=== PATIENT | female | born 1945 | race Caucasian/White ===

== ENCOUNTER 2016-11-06 13:39 | Inpatient (IN) ==
--- NOTE | 2016-11-06 15:13 | EKG Report ---
Test Performed on : 11/06/2016 2:54:25 PM Test Reason : fatigue Blood Pressure : / mmHG Vent. Rate : 064 BPM Atrial Rate : 064 BPM P-R Int : 194 ms QRS Dur : 066 ms QT Int : 412 ms P-R-T Axes : 075 015 059 degrees QTc Int : 425 ms Normal sinus rhythm. Nonspecific T wave abnormality Abnormal ECG When compared with ECG of 22-JUL-2016 10:46, No significant change was found Confirmed by Dominic Fontana MD ([id number]) on 11/26/2016 10:32:45 PM
[2016-11-06 15:49] LABS: AGAP 9; ALBUMIN 3.4 g/dL (3.5-5.0); ALKALINE PHOSPHATASE 81 U/L (32-104); BUN 16 mg/dL (8-22); CALCIUM 8.6 mg/dL (8.8-10.2); CHLORIDE 102 mmol/L (98-107); COSMO 281; GOT 42 U/L (10-30); GPT 10 U/L (10-36); POTASSIUM 3.5 mmol/L (3.5-5.1); SODIUM 140 mmol/L (136-145); TCO2 29 mmol/L (25-35); TOTAL PROTEIN 5.7 g/dL (6.3-8.3)
[2016-11-06] MEDS: DUONEB (A & A) INH SCH ×2 (15:50→22:04)
--- NOTE | 2016-11-06 15:56 | Diag Imaging Result Document ---
PROCEDURE NAME: CHEST-PORTABLE - 11/06/2016 PORTABLE CHEST AT 1503 HOURS: FINDINGS: The inspiration is better than on the previous study of 07/22/2016. There is no evidence of acute cardiac or pulmonary disease. IMPRESSION: No acute disease.
[2016-11-06] MEDS: XANAX PO SCH ×2 (17:53→21:26)
[2016-11-06] MEDS: PERCOCET-10 PO SCH ×2 (17:53→21:25)
[2016-11-06] MEDS: LOVENOX SUBQ SCH (17:53)
[2016-11-06] MEDS: D5 1/2 NS 1,000 ML IV SCH (17:53)
--- NOTE | 2016-11-06 17:57 | HISTORY AND PHYSICAL ---
CHIEF COMPLAINT: Extreme weakness, several falls over the past few days, anorexia, and lethargy. HISTORY: This is one of several [facility] admissions for this 71-year-old, white female with chronic headache, anxiety, insomnia, depression who is a resident of [facility]. According to family and friends, she has fallen several times the last few days and is more confused and more lethargic, eating very little. She was seen in the office this afternoon and found to have low blood pressure of 80/50. She has myalgias and arthralgias due to recent falls. There are a few contusions on both hips. Mucous membranes are slightly pale. She is admitted for further evaluation and treatment and probable referral to rehab at discharge. PAST MEDICAL HISTORY: Significant for left hip fracture in 2015 due to a fall. Attempts were made to ascertain whether she was taking too much of her controlled substances. It did not seem that she was according to counts in bottles. PRESENT MEDICATIONS: Albuterol 2.5 mg, atropine q.i.d., Xanax 1 mg q.i.d., Lexapro 20 mg once daily, Zyprexa 5 mg daily, oxycodone 10 mg/325, 1 q.i.d., Requip 2 mg at bedtime, and trazodone 150 mg at bedtime. ALLERGIES: None known. REVIEW OF SYSTEMS: Significant for generalized weakness. She has chronic headaches and anxiety. She takes heavy doses of Xanax and oxycodone. She has had no recent vomiting or diarrhea. FAMILY HISTORY: Unremarkable. SOCIAL HISTORY: She lives alone and is a . She has been a moderate cigarette smoker in the past. She denies recent alcohol usage. PHYSICAL EXAMINATION: VITAL SIGNS: Temperature 98.2 degrees, heart rate 84, respirations 18, blood pressure 80/50. O2 sat on room air 88%. HEENT: Pupils equal, round, and reactive to light. Tympanic membranes without inflammation. Pharynx benign with no erythema or exudate. She has decrease in pigmentation of the skin, genetic origin. There are a few contusions over the hips secondary to falls. NECK: Supple with no mass or lymphadenopathy. HEART: Regular in rate and rhythm with no murmur, rub or gallop. LUNGS: Clear with no rales or rhonchi. ABDOMEN: Soft with no mass, tenderness, or organomegaly. EXTREMITIES: No cyanosis, clubbing, or edema. NEUROLOGIC: She was very weak in the office requiring a wheelchair to come into the office and go back to her vehicle. She was brought in by a relative. IMPRESSION: Anorexia, volume depletion, hypotension, and multiple recent falls. PLAN: Admit for further evaluation and probable rehab placement. cc: Mart Pretty MD
[2016-11-06 18:29] LABS: UR AMPHETAMINES QUAL NONE DETECTED (NONE DETECT); UR BARBITUATES QUAL NONE DETECTED (NONE DETECT); UR BENZODIAZEPIN QUAL PRESUMPTIVE POSITIVE (NONE DETECT); UR CANNABINOIDS QUAL NONE DETECTED (NONE DETECT); UR COCAINE QUAL NONE DETECTED (NONE DETECT); UR MDMA QUAL NONE DETECTED (NONE DETECT); UR METHADONE QUAL NONE DETECTED (NONE DETECT); UR METHAMPHETAMINE QUAL NONE DETECTED (NONE DETECT); UR OPIATES QUAL PRESUMPTIVE POSITIVE (NONE DETECT); UR OXYCODONE QUAL PRESUMPTIVE POSITIVE (NONE DETECT); UR PCP QUAL NONE DETECTED (NONE DETECT); UR TCA QUAL PRESUMPTIVE POSITIVE (NONE DETECT)
[2016-11-06 18:49] LABS: URINE SOURCE VOIDED
[2016-11-06 18:54] LABS: BILIRUBIN URINE NEGATIVE (NEGATIVE); BLOOD URINE 1+ (NEGATIVE); CLARITY CLEAR (CLEAR); COLOR YELLOW; GLUCOSE URINE NEGATIVE (NEGATIVE); LEUKOCYTES URINE TRACE (NEGATIVE); NITRITE URINE NEGATIVE (NEGATIVE); PROTEIN URINE TRACE mg/dL (NEGATIVE); URINE MICROSCOPIC NEEDED? YES; UROBILINOGEN URINE NORMAL
[2016-11-06 18:55] LABS: URINE EPITHELIAL CELLS <10 /HPF (<10); URINE RBC <10 /HPF (<10); URINE WBC <10 /HPF (<10)
[2016-11-06] MEDS: REQUIP PO SCH (21:26)
[2016-11-07] MEDS: D5 1/2 NS 1,000 ML IV SCH ×3 (02:07→18:44)
[2016-11-07] MEDS: DUONEB (A & A) INH SCH ×2 (03:47→09:00)
[2016-11-07 06:26] LABS: MANUAL DIFF NEEDED? NO
[2016-11-07 06:36] LABS: BASO% 0.3 % (0.0-0.8); EOS# 0.15 X1000 (0.0-0.7); EOS% 2.3 % (0.0-10.0); HEMATOCRIT 43.1 % (37.0-47.0); HEMOGLOBIN 13.9 g/dL (12.0-16.0); IMM GRAN# 0.02 X1000 (0.0-0.04); IMM GRAN% 0.3 % (0.0-0.5); LYMPH% 39.1 % (20.5-51.1); MCH 31.7 PG (27-31); MCHC 32.3 g/dL (33-37); MCV 98.4 FL (81-99); MONO# 0.74 X1000 (0.11-0.59); MONO% 11.1 % (1.7-9.3); MPV 11.5 FL (7.4-10.4); NEUT% 46.9 % (42.2-75.2); PLT 111 X1000 (130-400); RBC 4.38 XMIL (4.2-5.4)
--- NOTE | 2016-11-07 07:50 | Diag Imaging Result Document ---
PROCEDURE NAME: XRAY HIP W/PELVIS BILAT 3-4VWS - 11/07/2016 X-RAY PELVIS, 2 VIEWS OF THE RIGHT HIP, 2 VIEWS OF THE LEFT HIP: COMPARISON: 03/20/2015. FINDINGS: There has been placement of a left femoral head prosthesis. No evidence of hardware fracture or loosening. Alignment is anatomic. The right hip joint space is preserved. Stable injection granulomas in the flanks bilaterally. There is increasing sclerosis of the right sacral wing close to the sacroiliac joint. The left side may also be affected. IMPRESSION: Abnormal sclerosis of the right sacral wing. The appearance is most suggestive of chronic insufficiency fractures. Consider further evaluation with a bone scan or CT of the pelvis.
--- NOTE | 2016-11-07 08:36 | PROGRESS NOTE ---
DATE: 11/07/2016 VITAL SIGNS: Stable with temperature 98.1 degrees, heart rate 64, respirations 18, blood pressure 112/47, and O2 saturation on room air 92%. LABORATORY DATA: Urinalysis normal except for trace protein and trace blood. Hemoglobin 13.9. Hematocrit 43.1. White blood count 6,600. OBJECTIVE: She feels a little better this morning and does not complain of dizziness. Chest is clear. Abdomen is soft. Appetite is fair. PLAN: Ambulate with physical therapy. cc: Mart Pretty MD
--- NOTE | 2016-11-07 08:46 | Diag Imaging Result Document ---
PROCEDURE NAME: LUMBAR SPINE 2-VIEWS - 11/07/2016 LUMBAR SPINE, 3 VIEWS: COMPARISON: 01/01/2013. FINDINGS: Alignment is anatomic. There is moderately advanced multilevel degenerative disk disease with some narrowing and osteophyte formation. No fracture or subluxation. Stable calcifications of the aorta and retroperitoneum. IMPRESSION: Degenerative disk disease. No acute disease.
[2016-11-07] MEDS ORDERED: LEXAPRO PO SCH (09:00)
[2016-11-07] MEDS: LEXAPRO PO SCH (10:15)
[2016-11-07] MEDS: ZYPREXA PO SCH (10:15)
[2016-11-07] MEDS: XANAX PO SCH ×4 (10:16→20:11)
[2016-11-07] MEDS: PERCOCET-10 PO SCH ×4 (10:16→20:11)
[2016-11-07] MEDS ORDERED: DUONEB (A & A) INH PRN (15:30)
[2016-11-07] MEDS: LOVENOX SUBQ SCH (17:52)
[2016-11-07] MEDS: REQUIP PO SCH (20:11)
[2016-11-08] MEDS: D5 1/2 NS 1,000 ML IV SCH ×4 (02:31→21:23)
[2016-11-08] MEDS: PERCOCET-10 PO SCH ×4 (10:15→21:23)
[2016-11-08] MEDS: LEXAPRO PO SCH (10:16)
[2016-11-08] MEDS: XANAX PO SCH ×4 (10:17→21:23)
[2016-11-08] MEDS: ZYPREXA PO SCH (10:17)
--- NOTE | 2016-11-08 11:13 | PROGRESS NOTE ---
DATE: 11/08/2016 PRIMARY CARE PHYSICIAN: Dr. Pretty SUBJECTIVE: Overnight, no issues or complaints. The patient is lying in bed with minimal needs. The patient has some overt memory deficits and does not remember the reason for admission aside from becoming dehydrated. OBJECTIVE: Vital signs: Temperature is stable, O2 saturation is approximately 92%, blood pressure within normal limits, respirations approximately 19 breaths per minute. General: A severely debilitated elderly female in no overt distress. HEENT: Left-sided nystagmus that is rotational, multiple beat and highly reproducible when the patient has a rightward gaze. Oropharynx shows dry mucous membranes. Pupils are round and reactive to light. Dentition is noted as poor. Neck: No JVD noted. Supple. No thyromegaly. Chest: Diffuse breath sounds at the bilateral bases with some rhonchi noted. Abdomen: No tenderness, no guarding, no rebound. Cardiovascular: Regular rate with multiple PVCs. No overt murmurs auscultated. Lower extremities: Noted muscular atrophy. Trace lower extremity edema. Neurologic: Cranial nerves II through XII are intact. The patient has incredibly poor eyesight. Denies any vertigo associated with tracking and noted alert to self only with waxing and waning mentation. DIAGNOSTIC DATA: The patient's labs showed hyponatremia and hypokalemia consistent with volume depletion, otherwise within normal limits. Some remainder of labs are pending at this a.m., and we will follow that course. IMPRESSION AND PLAN: Ms. Nuno is a 71-year-old female with: 1. Dehydration. 2. Acute on chronic fall. 3. Hypotension. 4. Legal blindness. 5. Metabolic encephalopathy, acute on chronic, with poor p.o. intake. The patient will be continued on high volume fluid resuscitation including dextrose due to the patient's poor p.o. status, will be advised to increase the intake of appropriate foods and physical therapy to both evaluate and increase her ability to maintain appropriate strength. Plans have been made via Social Work to allow for the patient to find placement approximately Thursday. We will follow until that time. cc: MD Mart Roberson MD
[2016-11-08] MEDS: LOVENOX SUBQ SCH (18:06)
[2016-11-08] MEDS: REQUIP PO SCH (21:22)
[2016-11-09] MEDS: D5 1/2 NS 1,000 ML IV SCH ×3 (03:28→14:32)
[2016-11-09 06:11] LABS: MANUAL DIFF NEEDED? NO
[2016-11-09 06:19] LABS: BASO% 0.2 % (0.0-0.8); EOS# 0.19 X1000 (0.0-0.7); EOS% 3.3 % (0.0-10.0); HEMATOCRIT 37.4 % (37.0-47.0); HEMOGLOBIN 11.9 g/dL (12.0-16.0); IMM GRAN# 0.02 X1000 (0.0-0.04); IMM GRAN% 0.4 % (0.0-0.5); LYMPH# 2.14 X1000 (1.2-3.4); LYMPH% 37.6 % (20.5-51.1); MCH 30.9 PG (27-31); MCHC 31.8 g/dL (33-37); MCV 97.1 FL (81-99); MONO# 0.56 X1000 (0.11-0.59); MONO% 9.8 % (1.7-9.3); MPV 11.5 FL (7.4-10.4); NEUT% 48.7 % (42.2-75.2); PLT 110 X1000 (130-400); RBC 3.85 XMIL (4.2-5.4)
[2016-11-09 06:48] LABS: AGAP 9; ALKALINE PHOSPHATASE 68 U/L (32-104); BUN 5 mg/dL (8-22); CALCIUM 8.2 mg/dL (8.8-10.2); CHLORIDE 107 mmol/L (98-107); COSMO 282; GOT 25 U/L (10-30); GPT 9 U/L (10-36); MAGNESIUM 1.7 mg/dL (1.5-2.7); SODIUM 143 mmol/L (136-145); TCO2 27 mmol/L (25-35); TOTAL PROTEIN 5.2 g/dL (6.3-8.3)
[2016-11-09] MEDS: ZYPREXA PO SCH (09:28)
[2016-11-09] MEDS: XANAX PO SCH ×3 (09:28→18:31)
[2016-11-09] MEDS: LEXAPRO PO SCH (09:29)
--- NOTE | 2016-11-09 11:31 | PROGRESS NOTE ---
DATE: 11/09/2016 PRIMARY CARE PHYSICIAN: Dr. Mart Pretty. SUBJECTIVE: Overnight, the patient had minimal changes. Did have some issues regarding blood pressure, dropped to 99/52. Appears to respond as expected. The patient still is at a low functioning status with some memory deficits that will need to have long-term management status post. OBJECTIVE: Vital Signs: Temperature 98.4 degrees, pulse 70, respirations 16, blood pressure 133/79, O2 saturation 98% on room air. Physical Examination: General: Shows a bedbound, elderly female in mild to moderate distress with bilateral left gaze nystagmus, rotational and multiple beats, reproducible with rightward gaze. HEENT: OP is dry. Pupils equal, round, reactive to light. Dentition is poor. Neck: No JVD noted. No thyromegaly. Respiratory: Breath sounds are decreased at the bilateral bases. Occasional rhonchi that clears with cough. Cardiovascular: Regular rate with multiple PVCs. No murmurs noted. Extremities: Lower extremities show muscle atrophy with trace lower extremity edema. Neurological: Cranial nerves 2-12 are grossly intact. Reflexes are within normal limits. Psychiatric: From a psychiatric point of view, the patient has some overt memory deficits. Laboratory Data: Labs how hemoglobin and hematocrit of 11 and 37.4 respectively, MCV improved to 30, WBC still within normal limits. Potassium low at 3, with a BUN of 5, creatinine 0.6, glucose 98-105, calcium still low at 8.2. ALT and AST returned to normal limits. Total protein 5.2, albumin 3. Normal TSH. Microbiology with no specimen showing anything acutely. ASSESSMENT: This is a 71-year-old, unfortunate female with: 1. Dehydration, improving. 2. Acute fall on chronic fall risk with multiple fall history and recurrent admission. 3. Hypertension. 4. Legal blindness. 5. Metabolic encephalopathy, acute on chronic with history of moderate to severe dementia. PLAN: We will decrease the fluid resuscitation. Replete the potassium as noted. Continue with the workup via social work to find a placement appropriately. We will continue symptomatic care for her current issues and follow with some daily labs to ensure the electrolytes stay within balance. We will repeat a urinalysis with urine culture to evaluate in case there are antibiotics that are needed prior to discharge. cc: MD Mart Roberson MD
[2016-11-09] MEDS: PERCOCET-10 PO SCH ×2 (14:30→18:31)
[2016-11-09] MEDS: KLOR-CON PO SCH ×2 (14:30→22:05)
[2016-11-09] MEDS: LOVENOX SUBQ SCH (18:30)
[2016-11-09] MEDS ORDERED: DEPAKOTE SPRINKLE PO SCH (21:00)
[2016-11-09] MEDS: REQUIP PO SCH (22:05)
[2016-11-10] MEDS: D5 1/2 NS 1,000 ML IV SCH (01:50)
[2016-11-10 05:11] LABS: BILIRUBIN URINE NEGATIVE (NEGATIVE); CLARITY CLEAR (CLEAR); COLOR STRAW; GLUCOSE URINE NEGATIVE (NEGATIVE); URINE MICROSCOPIC NEEDED? NO; URINE SOURCE CLEAN CATCH
[2016-11-10 05:12] LABS: BLOOD URINE NEGATIVE (NEGATIVE); LEUKOCYTES URINE NEGATIVE (NEGATIVE); NITRITE URINE NEGATIVE (NEGATIVE); PROTEIN URINE NEGATIVE (NEGATIVE); SP GRAVITY URINE 1.005; UROBILINOGEN URINE NORMAL
[2016-11-10 06:37] LABS: MANUAL DIFF NEEDED? NO
[2016-11-10 06:45] LABS: BASO% 0.2 % (0.0-0.8); EOS# 0.14 X1000 (0.0-0.7); EOS% 2.6 % (0.0-10.0); HEMATOCRIT 38.7 % (37.0-47.0); HEMOGLOBIN 12.4 g/dL (12.0-16.0); IMM GRAN# 0.01 X1000 (0.0-0.04); IMM GRAN% 0.2 % (0.0-0.5); LYMPH# 1.79 X1000 (1.2-3.4); LYMPH% 33.4 % (20.5-51.1); MCH 30.8 PG (27-31); MCV 96.3 FL (81-99); MONO# 0.65 X1000 (0.11-0.59); MONO% 12.1 % (1.7-9.3); MPV 11.8 FL (7.4-10.4); NEUT% 51.5 % (42.2-75.2); PLT 117 X1000 (130-400); RBC 4.02 XMIL (4.2-5.4)
[2016-11-10 07:55] LABS: AGAP 9; ALKALINE PHOSPHATASE 92 U/L (32-104); BUN 5 mg/dL (8-22); CALCIUM 8.6 mg/dL (8.8-10.2); CHLORIDE 105 mmol/L (98-107); COSMO 277; GOT 33 U/L (10-30); GPT 13 U/L (10-36); MAGNESIUM 1.7 mg/dL (1.5-2.7); POTASSIUM 3.7 mmol/L (3.5-5.1); SODIUM 140 mmol/L (136-145); TCO2 26 mmol/L (25-35); TOTAL PROTEIN 5.4 g/dL (6.3-8.3)
[2016-11-10] MEDS: ZYPREXA PO SCH (08:34)
[2016-11-10] MEDS: XANAX PO SCH ×3 (08:34→13:08)
[2016-11-10] MEDS: LEXAPRO PO SCH (08:34)
[2016-11-10] MEDS: KLOR-CON PO SCH (08:34)
[2016-11-10] MEDS: PERCOCET-10 PO SCH ×2 (08:38→13:08)
--- NOTE | 2016-11-10 10:17 | DISCHARGE SUMMARY ---
ADMISSION DATE: 11/06/2016 DISCHARGE DATE: 11/10/2016 FINAL DIAGNOSES: 1. Extreme weakness. 2. Hypotension. 3. Volume depletion. 4. Chronic headaches. 5. Chronic anxiety. DISPOSITION: To rehabilitation. MEDICATIONS: Same as at home except discontinuation of morphine. She is currently on Xanax 1 mg t.i.d., Percocet 10/325 one 4 times a day, doxepin 25 mg at bedtime, ropinirole 2 mg at bedtime, meloxicam 15 mg once daily. HISTORY: This is one of several [facility] admissions for this 71-year-old, white female with extreme weakness who presented to the office and blood pressure was 80/50. She was lethargic with slowed speech and unable to walk. She was hospitalized for evaluation. INITIAL LABORATORY: Hemoglobin 13.9, hematocrit 43.1, white blood count 6600 with normal differential. Sodium 140, potassium 3.5, BUN 16, creatinine 0.7, glucose 105. AST 42, total protein 5.7, albumin 3.4. TSH 0.87. ProBNP 1090. HOSPITAL COURSE: She was hydrated and blood pressure improved. Her weakness and confusion improved after discontinuation of morphine. She was placed on Xanax and Percocet t.i.d. by Dr. Leyva over the weekend. She complains of increased pain on less medication. Arrangements were made for her to go to [facility] today. She is discharged on the above medications to be seen back in the office after rehabilitation. A lumbar spine x-ray revealed degenerative disk disease but no acute disease. The hip and pelvis x-ray reveals sclerosus of the right sacral wing, suggestive of chronic insufficiency fractures. Chest x-ray revealed no acute disease. cc: Mart Pretty MD
[2016-11-10 11:25] VITALS: BP 124/62
== END 2016-11-10 15:10 ==
LOC: P.DIRADM 13:39 → P.MEDSURG 13:56
PROVIDERS: ADMIT Family Medicine; ATTEND Family Medicine

== ENCOUNTER 2018-11-03 16:48 | Inpatient (IN) ==
[2018-11-03] MEDS ORDERED: NARCAN IV ONE (18:45)
--- NOTE | 2018-11-03 19:07 | PROVIDER DOCUMENTATION ---
This chart was entered by Shameka Abdul Scribe, acting as scribe for Amadou Nagy MD. HPI-General Adult - General Source: family - History of Present Illness -Gen Adult Nature of Presenting Problems: 73 yof presents to er w/family with c/o a fall today w/no injury. pt had trouble getting off couch afterward and had fire dept and homehealth called to help ch qamar her. pt urinated on self, and had fever checked and it was 101.1. pt o2 also dropped to 77. pt also has old wound on left lower leg from scraping it on a car. pt family states its a blood blister and they keep it dressed. pt got new rx yesterday, had been taking percocet 7.5 and was given percocet 10mg. pt family states she takes meds every 6 hrs and today has been lethargic and not very responsive. pt denies taking blood thinners. pt has hx of copd and is a smoker. <Amadou Nagy - Last Filed: 11/03/18 21:51> <Stephan Huerta - Last Filed: 11/03/18 22:37> - General Chief Complaint: Fall Stated Complaint: FALL,LOW OXYGEN,WOUND ON LT LEG Time Seen by Provider: 11/03/18 18:37 Allergies/Adverse Reactions: Patient Allergies Allergy/AdvReac Type Severity Reaction Status Date / Time No Known Allergies Allergy Verified 09/14/17 06:03 Home Medications: Home Medication List Medication Instructions Recorded Confirmed Last Taken Type Escitalopram [Lexapro] 20 mg PO QHS 07/22/16 07/06/18 07/05/18 History Ropinirole HCl 2 mg PO BID 07/22/16 07/06/18 07/06/18 History Trazodone [Desyrel] 100 mg PO QHS 07/06/18 07/06/18 07/05/18 History Alprazolam [Xanax] 1 mg PO TID tablet 07/16/18 Unknown Rx Fluconazole [Diflucan] 100 mg PO DAILY tablet 07/16/18 Unknown Rx Oxycodone/APAP 5 mg/325 mg 1.5 each PO Q6H PRN PRN tablet 07/16/18 Unknown Rx [Percocet-5] Rivaroxaban [Xarelto] 10 mg PO DAILY@0600 tablet 07/16/18 Unknown Rx Review of Systems - Adult - REVIEW OF SYSTEMS - ADULT Constitutional: reports: see HPI, fever (101.9 1711 in er), other (weak). denies: chills, fatique, night sweats Eyes: reports: no symptoms reported Ears, Nose, Mouth & Throat: reports: no symptoms reported Cardiovascular: reports: no symptoms reported Respiratory: reports: no symptoms reported Gastrointestinal: reports: no symptoms reported Genitourinary: reports: see HPI, incontinence. denies: dysuria, discharge, frequency Musculoskeletal: reports: no symptoms reported. denies: bone pain, back pain, joint pain, joint swelling Integumentary: reports: see HPI, other (left lower extremity wound, dressed). denies: hives, rash, skin sores/ulcer Neurological: reports: no symptoms reported Psychiatric: reports: no symptoms reported Endocrine: reports: no symptoms reported Hematologic/Lymphatic: reports: no symptoms reported Allergic/Immunologic: reports: no symptoms reported All Other Systems: Reviewed and Negative <Amadou Nagy - Last Filed: 11/03/18 21:51> Past History - Adult - PAST MEDICAL HISTORY-ADULT Review of Records: reports: Old Records Reviewed, Nursing Assessment Review, Medications Reviewed, Social history reviewed & non-contributory. Major Childhood Illnesses: reports: denies history Cardiovascular: reports: denies history Respiratory: reports: COPD Gastrointestinal: reports: denies history Obstetrical/Gynecological: reports: denies history Genitourinary: reports: denies history Musculoskeletal: reports: chronic pain (joint pain) Neurological: reports: Seizures/Epilepsy Endocrine/Immune: reports: thyroid disorder Other Conditions: reports: blindness, other cancer (skin) - PRIOR SURGERIES/PROCEDURES Surgical/Procedure History: reports: cholecystectomy, joint replacement (left Total hip) - IMMUNIZATION STATUS Childhood Immunizations: See Nurse Assessment Flu Vaccine: See Nurse Assessment - FAMILY HISTORY Family History: reviewed, not pertinent - SOCIAL HISTORY Smoking: cigarettes, greater than 1 pack/day Provider spent 3-5 mins advising pt. on dangers of tobacco.: Discussed manners to quit use, and f/u contacts for add'l counseling. Substance Use: none/never <Amadou Nayg - Last Filed: 11/03/18 21:51> Physical Exam-General - PHYSICAL EXAM-ADULT Initial Vital Signs Reviewed: Yes - CONSTITUTIONAL General Appearance: no apparent distress, slow to respond. negative: cachetic, lethargic, combative - EYES Eyes: PERRL/EOMI - HEAD, EARS, NOSE, MOUTH & THROAT HENMT: normocephalic/atraumatic, moist mucous membranes, normal ENT inspection, dental decay. negative: pharyngeal erythema, tonsillar exudate, frontal tenderness, maxillary tenderness - NECK Neck: non-tender, full range of motion, supple, normal inspection - RESPIRATORY Respiratory: chest non-tender, lungs clear, normal breath sounds, no pleuratic chest pain, no respiratory distress, no accessory muscle use. negative: respiratory distress, decreased breath sounds, accessory muscle use, crackles - CARDIOVASCULAR Cardiovascular: normal peripheral pulses, regular rate, rhythm - GASTROINTESTINAL (ABDOMEN) Abdominal Exam: normal bowel sounds, non tender, soft - LYMPHATIC Lymphatic: no adenopathy - MUSCULOSKELETAL Back Exam: normal inspection, no CVA tenderness, no vertebral tenderness Extremity: normal range of motion, non-tender, normal inspection Peripheral Pulses: radial (R): 2+, radial (L): 2+ - SKIN Integumentary: normal color, normal turgor, warm/dry, other (pt has old wound on left lower leg, dressed.) - NEUROLOGIC Neurologic: grossly normal, no motor/sensory deficits - PSYCHIATRIC Psych/Mental Status: normal thought content, normal thought process, disoriented x 3. negative: anxious, disheveled, depressed affect <Amadou Nagy - Last Filed: 11/03/18 21:51> Progress - PLAN OF CARE/RESULTS Progress/Plan/Lab Results: Vital Signs - 8 hr 11/03/18 17:11 Temperature 101.9 F H Pulse Rate 101 H Respiratory Rate 20 Blood Pressure 112/74 O2 Sat by Pulse Oximetry 72 L Result Diagrams: 11/03/18 20:46 11/03/18 21:22 - XRAY 1 XRAY: Bilateral XRAY Study: Chest (EXAM: CHEST-1 VIEW 11/03/2018 HISTORY: possible sepsis, hypox ia TECHNIQUE: AP portable at 1856 COMMENT: Compared to 07/06/2018 the atelectasis previously present in the lingula has resolved. Otherwise considering differences in inspiration there has been no significant change. IMPRESSION: No evidence of acute disease. Electronically signed by Davi cesar 11/03/2018 7:11 PM) Impression: Normal Comparison with other Films: changes noted - CT/MRI 1 CT Study: Head (EXAM: CT HEAD W/O CONTRAST 11/03/2018 HISTORY: ams TECHNIQUE: This exam was performed using automated exposure control, adjustment of mA or kV according to patient size, and/or use of iterative reconstruction technique. COMMENT: The current examination is compared with 05/19/2017. There is no evidence of mass effect, bleed, or abnormal extra-axial fluid collection. There are calcifications in the internal carotid arteries bilaterally. There is mucosal thickening in the left maxillary sinus. This was not present on the previous study. Otherwise, compared to the previous examination there has been no significant change in the appearance the brain. IMPRESSION: No evidence of acute intracranial disease. Electronically signed by Davi Nicolas 11/03/2018 8:38 PM) Impression: Abnormal Comparison with other Films: changes noted - CHANGE OF SHIFT REPORT (ED Provider) 1 Report Given and Care Transferred to:: Dr Huerta Time of Transfer: 19:00 Items Pending: Labs, XRAY Results, CT/MRI Results <Amadou Nagy - Last Filed: 11/03/18 21:51> - PLAN OF CARE/RESULTS Progress/Plan/Lab Results: Vital Signs - 8 hr 11/03/18 17:11 11/03/18 17:46 11/03/18 18:00 Temperature 101.9 F H Pulse Rate 101 H 87 83 Respiratory Rate 20 18 13 Blood Pressure 112/74 120/77 122/74 O2 Sat by Pulse Oximetry 72 L 95 94 L 11/03/18 18:50 11/03/18 19:00 11/03/18 19:10 Temperature Pulse Rate 80 72 73 Respiratory Rate 14 22 13 Blood Pressure 122/68 O2 Sat by Pulse Oximetry 92 L 91 L 92 L 11/03/18 19:20 11/03/18 19:30 11/03/18 19:31 Temperature Pulse Rate 69 69 69 Respiratory Rate 23 16 20 Blood Pressure 127/63 O2 Sat by Pulse Oximetry 92 L 93 L 93 L 11/03/18 19:40 11/03/18 19:50 Temperature Pulse Rate 73 71 Respiratory Rate 22 20 Blood Pressure O2 Sat by Pulse Oximetry 92 L 93 L Laboratory Results - last 24 hr 11/03/18 11/03/18 11/03/18 18:29 20:20 20:46 WBC Cancelled 8.35 RBC Cancelled 5.19 Hgb Cancelled 16.5 H Hct Cancelled 51.0 H MCV Cancelled 98.3 MCH Cancelled 31.8 H MCHC Cancelled 32.4 L RDW Std Deviation Cancelled 12.5 Plt Count Cancelled 160 MPV Cancelled 11.8 H Immature Gran % (Auto) Cancelled 0.5 Neut % (Auto) Cancelled 54.2 Lymph % (Auto) Cancelled 32.0 Hickman % (Auto) Cancelled 12.1 H Eos % (Auto) Cancelled 1.1 Baso % (Auto) Cancelled 0.1 Immature Gran # (Auto) Cancelled 0.04 Neut # (Auto) Cancelled 4.53 Lymph # (Auto) Cancelled 2.67 Hickman # (Auto) Cancelled 1.01 H Eos # (Auto) Cancelled 0.09 Baso # (Auto) Cancelled 0.01 Corrected WBC (Man) Cancelled Sodium Potassium Chloride Carbon Dioxide Anion Gap BUN Creatinine Estimated GFR/1.73 m2 BUN/Creatinine Ratio Glucose Calculated Osmolality Calcium Total Bilirubin AST ALT Alkaline Phosphatase Troponin T Total Protein Albumin Globulin Albumin/Globulin Ratio Plasma Lactate Urine Source CLEAN CATCH Urine Color YELLOW Urine Turbidity CLEAR Urine pH 5.5 Ur Specific Bluejacket 1.003 Urine Protein NEGATIVE Ur Glucose (Stick) NEGATIVE Ur Ketones (Stick) NEGATIVE Urine Blood SMALL A Urine Nitrite POSITIVE A Urine Bilirubin NEGATIVE Urobilinogen Dipstick NORMAL Urine Leukocytes SMALL A Urine WBC (Auto) 10-20 A Urine RBC (Auto) <10 U Epithel Cells (Auto) <10 Urine Bacteria (Auto) 4+ 11/03/18 11/03/18 11/03/18 20:46 21:22 21:22 WBC RBC Hgb Hct MCV MCH MCHC RDW Std Deviation Plt Count MPV Immature Gran % (Auto) Neut % (Auto) Lymph % (Auto) Hickman % (Auto) Eos % (Auto) Baso % (Auto) Immature Gran # (Auto) Neut # (Auto) Lymph # (Auto) Hickman # (Auto) Eos # (Auto) Baso # (Auto) Corrected WBC (Man) Sodium 138 Potassium 4.1 Chloride 98 Carbon Dioxide 32 Anion Gap 8 BUN 10 Creatinine 0.7 Estimated GFR/1.73 m2 > 60 BUN/Creatinine Ratio 14 Glucose 111 H Calculated Osmolality 275 Calcium 9.0 Total Bilirubin 0.43 AST 59 H ALT 24 Alkaline Phosphatase 133 H Troponin T < 0.010 Total Protein 6.9 Albumin 3.8 Globulin 3.1 Albumin/Globulin Ratio 1.2 Plasma Lactate 0.9 Urine Source Urine Color Urine Turbidity Urine pH Ur Specific Bluejacket Urine Protein Ur Glucose (Stick) Ur Ketones (Stick) Urine Blood Urine Nitrite Urine Bilirubin Urobilinogen Dipstick Urine Leukocytes Urine WBC (Auto) Urine RBC (Auto) U Epithel Cells (Auto) Urine Bacteria (Auto) Orders Category Date Time Status CHEST-1 VIEW [RAD] Stat Exams 11/03/18 18:[address] HEAD W/O CONTRAST [CT] Stat Exams 11/03/18 18:41 Completed CBC WITH ELECTRONIC DIFF [HEME] Stat Lab 11/03/18 20:46 Completed COMPREHENSIVE METABOLIC PANEL [CHEM] Stat Lab 11/03/18 21:22 Completed LACTATE, PLASMA [CHEM] Stat Lab 11/03/18 20:46 Completed TROPONIN T Stat Lab 11/03/18 21:22 Completed URINALYSIS [URINALYSIS] Stat Lab 11/03/18 20:20 Completed Naloxone [Narcan] Med 11/03/18 18:45 Discontinued 0.4 mg IV NOW ONE EKG [EKG] Stat Ther 11/03/18 18:41 Ordered Result Diagrams: 11/03/18 20:46 11/03/18 21:22 <Stephan Huerta - Last Filed: 11/03/18 22:37> Departure <Amadou Nagy - Last Filed: 11/03/18 21:51> - Departure Date of Disposition Decision: 11/03/18 Time of Disposition Decision: 22:36 Certified Medical Emergency: Emergent - Critical Care Note This patient required my direct & personal management of CC.: No <Stephan Huerta - Last Filed: 11/03/18 22:37> - Departure DIAGNOSIS: Hypoxia, Weakness UTI (urinary tract infection) Qualifiers: Urinary tract infection type: acute cystitis Hematuria presence: without hematuria Qualified Code(s): N30.00 - Acute cystitis without hematuria Disposition: ADMITTED INPATIENT 09 Condition: Stable Referrals and Follow-Ups: Mart Pretty MD [Primary Care Provider] - Discharge Education: Steps to Quit Smoking, [id number] Attestation - Physician/ GLEN Attestation Patient care was provided by Advanced Practice Provider:: No The physician spent face to face time with patient:: Yes Advanced Practice Provider documentation review:: Supervising physician onsite and consulted in the evaluation and care of this patient. The physician did have a face to face encounter with the patient. <Amadou Nagy - Last Filed: 11/03/18 21:51> - Physician/ GLEN Attestation Patient care was provided by Advanced Practice Provider:: No The physician spent face to face time with patient:: Yes Advanced Practice Provider documentation review:: Supervising physician onsite and consulted in the evaluation and care of this patient. The physician did have a face to face encounter with the patient. <Stephan Huerta - Last Filed: 11/03/18 22:37> This chart was documented by the indicated scribe, (Shameka Abdul Scribe) and accurately reflects the services I performed and decisions made by me, Amadou Nagy MD, as attested by the provider's signature.
--- NOTE | 2018-11-03 19:14 | Diag Imaging Result Doc PS360 ---
EXAM: CHEST-1 VIEW 11/03/2018 HISTORY: possible sepsis, hypoxia TECHNIQUE: AP portable at 1856 COMMENT: Compared to 07/06/2018 the atelectasis previously present in the lingula has resolved. Otherwise considering differences in inspiration there has been no significant change. IMPRESSION: No evidence of acute disease. Electronically signed by Davi Nicolas 11/03/2018 7:11 PM
[2018-11-03 20:28] LABS: URINE SOURCE CLEAN CATCH
[2018-11-03 20:34] LABS: BILIRUBIN URINE NEGATIVE (NEGATIVE); BLOOD URINE SMALL (NEGATIVE); COLOR YELLOW; GLUCOSE URINE NEGATIVE (NEGATIVE); KETONE URINE NEGATIVE (NEGATIVE); LEUKOCYTES URINE SMALL (NEGATIVE); NITRITE URINE POSITIVE (NEGATIVE); PH URINE 5.5; PROTEIN URINE NEGATIVE (NEGATIVE); SP GRAVITY URINE 1.003; TURBIDITY URINE CLEAR (CLEAR); UROBILINOGEN URINE NORMAL (NORMAL)
[2018-11-03 20:35] LABS: UR EPITHELIAL CELLS <10 /HPF (<10); URINE BACTERIA 4+ /HPF; URINE RBC <10 /HPF (<10)
--- NOTE | 2018-11-03 20:40 | Diag Imaging Result Doc PS360 ---
EXAM: CT HEAD W/O CONTRAST 11/03/2018 HISTORY: ams TECHNIQUE: This exam was performed using automated exposure control, adjustment of mA or kV according to patient size, and/or use of iterative reconstruction technique. COMMENT: The current examination is compared with 05/19/2017. There is no evidence of mass effect, bleed, or abnormal extra-axial fluid collection. There are calcifications in the internal carotid arteries bilaterally. There is mucosal thickening in the left maxillary sinus. This was not present on the previous study. Otherwise, compared to the previous examination there has been no significant change in the appearance the brain. IMPRESSION: No evidence of acute intracranial disease. Electronically signed by Davi Nicolas 11/03/2018 8:38 PM
[2018-11-03 21:09] LABS: BASO# 0.01 X1000 (0.0-0.2); BASO% 0.1 % (0.0-0.8); EOS# 0.09 X1000 (0.0-0.7); EOS% 1.1 % (0.0-10.0); HEMOGLOBIN 16.5 g/dL (12.0-16.0); IMM GRAN# 0.04 X1000 (0.0-0.04); IMM GRAN% 0.5 % (0.0-0.5); LYMPH# 2.67 X1000 (1.2-3.4); MCH 31.8 PG (27-31); MCHC 32.4 g/dL (33-37); MCV 98.3 FL (81-99); MONO# 1.01 X1000 (0.11-0.59); MONO% 12.1 % (1.7-9.3); MPV 11.8 FL (7.4-10.4); NEUT# 4.53 X1000 (1.4-6.5); NEUT% 54.2 % (42.2-75.2); PLT 160 X1000 (130-400); RBC 5.19 XMIL (4.2-5.4); RDW 12.5 % (11.5-14.5); WBC 8.35 X1000 (4.8-10.8)
[2018-11-03 21:48] LABS: AGAP 8; ALB/GLOB RATIO 1.2; ALBUMIN 3.8 g/dL (3.5-5.0); ALKALINE PHOSPHATASE 133 U/L (32-104); BUN 10 mg/dL (8-22); CHLORIDE 98 mmol/L (98-107); COSMO 275; CREATININE 0.7 mg/dL (0.5-0.9); ESTIMATED GFR > 60; GLUCOSE 111 mg/dL (70-104); GOT 59 U/L (10-30); GPT 24 U/L (10-36); POTASSIUM 4.1 mmol/L (3.5-5.1); SODIUM 138 mmol/L (136-145); TCO2 32 mmol/L (25-35); TOTAL BILIRUBIN 0.43 mg/dL (0.20-1.00); TOTAL PROTEIN 6.9 g/dL (6.3-8.3)
[2018-11-03] MEDS ORDERED: LEVAQUIN 750 MG/D5W 750 MG/150 ML IVPB IV ONE (22:37)
[2018-11-03] MEDS ORDERED: ZOFRAN IV PRN (22:56)
[2018-11-03] MEDS ORDERED: TYLENOL PO PRN (22:56)
[2018-11-03] MEDS: ROCEPHIN 1 GM in NS 50 ML IV SCH (23:00)
[2018-11-03] MEDS ORDERED: NS 1,000 ML IV SCH (23:00)
[2018-11-04] MEDS ORDERED: PERCOCET-5 PO ONE
--- NOTE | 2018-11-04 00:06 | HISTORY AND PHYSICAL ---
CHIEF COMPLAINT: Fall, hypoxia, altered mental status. HISTORY OF PRESENT ILLNESS: A 73-year-old patient who sees Dr. Mart Pretty outpatient brought into the emergency room after being found hypoxic. Per the adoptive daughter in the room, she had a fall. Fire and rescue were sent out. She was apparently fine at that point. Had been sat up on the couch. The next time she was seen she had urinated on herself and she was lethargic. Her oxygen saturation was tested and it was in the 70s. She was also noted to be febrile. It should be noted that the patient apparently stopped hospice care yesterday. Somehow there was confusion at the pharmacy and her Percocet was increased from 7.5 to 10. The patient has a timed lock box that doses her medications. This could have had something to do with her lethargy. However, upon arrival to the emergency room she was found to have a nitrite-positive urinary tract infection. She will be admitted for further evaluation and treatment. PAST MEDICAL HISTORY: Fall with fracture of her right hip and COPD. Otherwise, no past medical history to speak off. PREVIOUS SURGICAL HISTORY: Some type of bowel surgery, and 2 hip replacements and a cholecystectomy. FAMILY HISTORY: Patient denies any chronic illnesses in first-degree relatives. SOCIAL HISTORY: She lives in an apartment by herself with family checking on her frequently. Smokes 1 pack to a pack and a half of cigarettes per day. Denies alcohol or illicit drugs. ALLERGIES: No known drug allergies. HOME MEDICATIONS: Trazodone, Lexapro, Percocet 7.5., alprazolam 1 mg t.i.d. These were the medications the adoptive daughter told me. An order was placed for Nursing to reconcile home medications. REVIEW OF SYSTEMS: Patient has complaint of left leg pain and chronic pain in general. She denies other complaint at this time. Other pertinent positives for admission are listed above in the HPI. All other systems reviewed and found to be negative. PHYSICAL EXAMINATION: VITAL SIGNS: Temperature 101.9, pulse 71, respirations 20, blood pressure 109/60, oxygen saturation 93% on room air. GENERAL: A 73-year-old female is alert and oriented times 3, appears somewhat lethargic but is able to answer most questions appropriately. HEENT: Head is atraumatic, normocephalic. Pupils equal, round, reactive to light. Extraocular eye movement is intact. Sclerae are anicteric. Conjunctiva is pink. Oral mucosa is moist. NECK: Supple. No JVD. No thyromegaly. Trachea is midline. No cervical lymphadenopathy. CARDIAC: S1, S2 appreciated. No murmurs, gallops, rubs. LUNGS: Mild expiratory wheezing. No rhonchi, rales. Symmetric rise and fall with respirations. ABDOMEN: Soft, nondistended, nontender. Bowel sounds decreased all 4 quadrants. No pulsatile mass. No organomegaly. EXTREMITIES: No clubbing, cyanosis, or edema. Two-plus pedal pulses. Left leg has around a 4- inch skin tear on it covered in a bandage with mild erythema surrounding it. GENITOURINARY: No bladder distention. Patient voids. Otherwise deferred. NEUROLOGICAL: Patient is alert and oriented to person, place, time and situation. She is mildly lethargic but cranial nerves II through XII are grossly intact. DIAGNOSTIC DATA: CT of the head and chest x-ray showed no acute findings. LABORATORY DATA: WBC 8.35. Hemoglobin 16.5. Hematocrit 51. Platelet count 160. Sodium 138. Potassium 4.1. Chloride 98. Carbon dioxide 32. BUN 10. Creatinine 0.7. Glucose 111. Urine: Nitrite positive, leukocyte esterase positive, 10-20 WBCs, 4-plus bacteria. ASSESSMENT AND PLAN: 1. Urinary tract infection. We will treat with Rocephin 1 g IV daily. Tylenol as needed for fever. We will give 1 L of normal saline at 100 mL per hour and then discontinue fluids. 2. Chronic pain syndrome. We will give 1 Percocet 5 tonight [address] then let Dr. Pretty, her primary care provider, continue her medications. 3. Lethargy. This is likely related to her urinary tract infection. However, it could be related to the sudden increase of her Percocet through some miscommunication with the pharmacy. Recommend decreasing the patient's Percocet back to 7.5. Again, we will defer to Dr. Mart Pretty, her primary care provider. Further recommendations per patient clinical course. Dictated by ARI Patel for Bautista Strong MD cc: ARI Patel MD Examination done on this patient showed bilateral wheezes in the lungs with decreased air entry. Consideration for aspiration PNA from mild oversedation from medications needs be noted if pt. does not improve from exclusive treatment for UTI. At which point, repeat CXR or non contrast CT thorax may help rule this out. RICH
[2018-11-04] MEDS: DESYREL PO SCH ×2 (01:42→21:31)
--- NOTE | 2018-11-04 08:12 | PROGRESS NOTE ---
DATE: 11/04/2018 The patient is a 73-year-old white female resident of assisted living, who fell yesterday and was assisted by home health. She was found to have a 102 temperature and sent to the emergency room. Chest x-ray and head scan were unremarkable. Urinalysis showed pyuria and evidence of cystitis. She also had low O2 saturation, at home was 77%. She has refused to wear oxygen and continues to smoke heavily. There was question whether she took too many of her Percocet yesterday before the fall. Chest is clear. Abdomen is soft. There is an abrasion of her left anterior tibial area, chronic, healing post large hematoma of her left lower leg due to a fall. She may need skilled nursing at discharge. Social service consult will be obtained for discussion with the patient and family. cc: Mart Pretty MD
[2018-11-04 09:10] LABS: BASO# 0.01 X1000 (0.0-0.2); BASO% 0.1 % (0.0-0.8); EOS# 0.16 X1000 (0.0-0.7); EOS% 2.2 % (0.0-10.0); HEMATOCRIT 45.2 % (37.0-47.0); HEMOGLOBIN 14.2 g/dL (12.0-16.0); IMM GRAN# 0.02 X1000 (0.0-0.04); IMM GRAN% 0.3 % (0.0-0.5); LYMPH# 2.52 X1000 (1.2-3.4); LYMPH% 34.7 % (20.5-51.1); MCH 31.4 PG (27-31); MCHC 31.4 g/dL (33-37); MONO# 1.14 X1000 (0.11-0.59); MONO% 15.7 % (1.7-9.3); MPV 10.8 FL (7.4-10.4); NEUT# 3.41 X1000 (1.4-6.5); PLT 146 X1000 (130-400); RBC 4.52 XMIL (4.2-5.4); RDW 12.2 % (11.5-14.5); WBC 7.26 X1000 (4.8-10.8)
[2018-11-04 09:29] LABS: AGAP 10; BUN 9 mg/dL (8-22); CALCIUM 8.2 mg/dL (8.8-10.2); CHLORIDE 100 mmol/L (98-107); COSMO 278; CREATININE 0.7 mg/dL (0.5-0.9); ESTIMATED GFR > 60; GLUCOSE 89 mg/dL (70-104); SODIUM 140 mmol/L (136-145); TCO2 30 mmol/L (25-35)
[2018-11-04] MEDS: XANAX PO SCH ×5 (09:43→20:29)
[2018-11-04] MEDS ORDERED: NS 500 ML IV ONE (12:33)
[2018-11-04] MEDS: PERCOCET-5 PO PRN ×2 (13:17→21:35)
[2018-11-04] MEDS: NS 1,000 ML IV SCH (13:17)
[2018-11-04] MEDS: LEXAPRO PO SCH (20:29)
[2018-11-04] MEDS: ROCEPHIN 1 GM in NS 50 ML IV SCH (22:33)
[2018-11-05] MEDS: PERCOCET-5 PO PRN ×3 (03:26→18:32)
[2018-11-05] MEDS: NS 1,000 ML IV SCH ×3 (03:33→20:43)
--- NOTE | 2018-11-05 08:14 | PROGRESS NOTE ---
DATE: 11/05/2018 VITAL SIGNS: Stable with temperature 97.9 degrees, heart rate 66, respirations 14, blood pressure 98/43, O2 saturation on nasal oxygen 100%. OBJECTIVE: General: Patient is somnolent, but arousable. She states that she rested poorly last night because she was hurting. Her Percocet had been decreased to allow her to wake up. Chest: Clear. Abdomen: Soft. PLAN: Ambulate, and discontinue oxygen. If she is doing well this afternoon, discharge will be considered. She does not want to consider correction or other placement at this time. Discussion was made concerning her need for assistance and someone to stay with her 24 hours a day. She is anxious to go back home. Apparently she had been taking Percocet 10/325 for a few days, and this was too strong. It will be decreased when she returns home. cc: Mart Pretty MD
[2018-11-05] MEDS: XANAX PO SCH ×3 (09:25→17:04)
[2018-11-05] MEDS ORDERED: KEFLEX PO SCH (20:00)
[2018-11-05 20:30] VITALS: BP 106/58
[2018-11-05] MEDS: LEXAPRO PO SCH (20:41)
[2018-11-05] MEDS: DESYREL PO SCH (20:42)
--- NOTE | 2018-11-06 14:07 | DISCHARGE SUMMARY ---
ADMISSION DATE: 11/03/2018 DISCHARGE DATE: 11/05/2018 FINAL DIAGNOSES: Lethargy and hypoxia, smoker, chronic obstructive pulmonary disease, urinary tract infection, hypotension, chronic headaches, chronic anxiety, abrasion of left anterior lower leg. HISTORY: This is one of several [facility] admissions for this 73-year-old white female, who fell at home and was picked up from the floor by Fire Department. They called [facility]. Home health also visited and called me. Recommendation was made for the patient to be brought to the emergency room by ambulance. O2 saturation at home was 77%. She has refused oxygen in the recent past and continues to smoke. She was doing well the day before admission, but there was suspicion that she took too many of her pain medicines at home. She has been hospitalized several times for overdose of pain medication, Xanax. She was admitted for further evaluation and treatment. INITIAL LABORATORY: Hemoglobin 16.5, hematocrit 51.0, white blood count 8300 with normal differential. Sodium 138, potassium 4.1. BUN 10, creatinine 0.7, glucose 111. AST 59, alkaline phosphatase 133. Troponin less than 0.01. TSH 0.46. HOSPITAL COURSE: She was hydrated and additional lab revealed cystitis. Urine culture was done and is pending. She was placed on Rocephin. She has improved over the last couple of days. O2 saturation on room air today is 93%. Home O2 will be arranged for use at bedtime. She is encouraged to discontinue smoking. She is discharged home on the above medications to be seen back in the office in 1 week for followup. cc: Mart Pretty MD
== END 2018-11-05 23:46 | disposition home health service (06) | DRG 918 ==
LOC: ED 16:48 → SUATTDRO 11-04 00:28 → EDIPHOLD 11-04 00:28 → 4N 11-04 12:18
PROVIDERS: ADMIT Family Medicine; ATTEND Family Medicine
CPT/HCPCS: 70450; 71010; 71045; 80048; 80053; 81001; 83605; 84443; 84484; 85025; 93005; 96365; 96366; 97162; 97530; 99285; A9270; J0696; J1956; J7030; J7040

== ENCOUNTER 2018-11-12 15:26 | Inpatient (IN) ==
[2018-11-12] MEDS ORDERED: NS 1,000 ML IV SCH ×2 (15:30→15:45)
--- NOTE | 2018-11-12 15:54 | Diag Imaging Result Doc PS360 ---
EXAM: CHEST-PORTABLE 11/12/2018 HISTORY: dyspnea TECHNIQUE: AP portable upright at 1545 COMMENT: There is no evidence of acute cardiac or pulmonary disease. Compared to 11/03/2018 there has been no significant change. IMPRESSION: Stable chest. Electronically signed by Davi Nicolas 11/12/2018 3:51 PM
[2018-11-12] MEDS: NS 1,000 ML IV SCH (16:18)
[2018-11-12 16:55] LABS: AGAP 6; ALB/GLOB RATIO 1.5; ALBUMIN 3.5 g/dL (3.5-5.0); ALKALINE PHOSPHATASE 81 U/L (32-104); BUN 11 mg/dL (8-22); CHLORIDE 97 mmol/L (98-107); COSMO 282; CREATININE 0.7 mg/dL (0.5-0.9); ESTIMATED GFR > 60; GLUCOSE 87 mg/dL (70-104); GOT 15 U/L (10-30); GPT 8 U/L (10-36); POTASSIUM 3.7 mmol/L (3.5-5.1); SODIUM 142 mmol/L (136-145); TCO2 39 mmol/L (25-35); TOTAL BILIRUBIN 0.27 mg/dL (0.20-1.00); TOTAL PROTEIN 5.9 g/dL (6.3-8.3)
--- NOTE | 2018-11-12 17:46 | HISTORY AND PHYSICAL ---
CHIEF COMPLAINT: Lethargy and difficulty for caregivers to get in and out of the car to come to the office. HISTORY: This is one of several recent [facility] admissions for this 73-year-old white female who recently was on hospice care and then seemed to be doing better, so was changed to home health. She was hospitalized 11/03 for several days with acute mental change and falls. She did not wish rehab at discharge and she went to caregiver's house. Caregiver is a friend of the family and also has [id number]. She seemed to be drinking well, but eating poorly. She presented to the office today and was very weak. Blood pressure was 80/40 and respirations were shallow. O2 saturation on 4 L nasal oxygen was 90%. Lungs were clear. She was admitted for hydration and further evaluation. PAST MEDICAL HISTORY: Significant for cholecystectomy, bilateral hip replacement, multiple falls, excoriation post hematoma left anterior tibia. PRESENT MEDICATIONS: Xanax 1 mg t.i.d., Percocet 7.5 mg q.i.d., trazodone 100 mg at bedtime, Xarelto 10 mg 1 daily. ALLERGIES: None known. REVIEW OF SYSTEMS: Significant for multiple basal cell cancers on her back and face. There has been difficulty in preventing smoking and also difficulty in using her oxygen. Apparently, O2 saturation dropped into the 70s without oxygen at the caregiver's home. She was unable to assist getting herself into her caregiver's car and needed 2 people to help pick her up and put her in the car. She has had progressive weakness and decline over the past 4 to 6 months. SOCIAL HISTORY: Lives with a friend currently and had been in assisted living for a couple of years. There is history of smoking 1 to 2 packs daily. The patient recently refused to have an overnight oximetry test. She denies alcohol usage. PHYSICAL EXAMINATION: VITAL SIGNS: Temperature 98 degrees, heart rate 51, respirations 17, blood pressure 102/54. GENERAL: Patient is a well-developed, well-nourished, weak white female in no apparent distress. HEENT: Pupils equal, round, and reactive to light. Tympanic membranes without inflammation. Pharynx benign with no erythema or exudate. NECK: Supple with no mass or lymphadenopathy. HEART: Regular in rate and rhythm with no murmur, rub or gallop. LUNGS: Clear with no rales or rhonchi. ABDOMEN: Soft with no mass, tenderness, or organomegaly. EXTREMITIES: No cyanosis, clubbing, or edema. RECTAL AND GENITALIA: Deferred. SKIN: She has multiple keratotic lesions on her face and probable skin cancer at the tip of her nose. She has an excoriated area on the left anterior tibia related to previous fall. IMPRESSION: 1. Volume depletion. 2. Hypotension. 3. Hypoxia. 4. Extreme weakness. 5. Chronic headaches. 6. Chronic anxiety. 7. Chronic insomnia. PLAN: Admit for strengthening and further evaluation. Urinalysis was done in the office and revealed no pyuria. cc: Mart Pretty MD
[2018-11-12] MEDS: XANAX PO SCH (19:02)
[2018-11-12] MEDS: PERCOCET-5 PO PRN (19:04)
[2018-11-12 19:12] LABS: URINE SOURCE CLEAN CATCH
[2018-11-12 19:23] LABS: BILIRUBIN URINE NEGATIVE (NEGATIVE); BLOOD URINE NEGATIVE (NEGATIVE); COLOR YELLOW; GLUCOSE URINE NEGATIVE (NEGATIVE); KETONE URINE NEGATIVE (NEGATIVE); LEUKOCYTES URINE TRACE (NEGATIVE); NITRITE URINE NEGATIVE (NEGATIVE); PROTEIN URINE TRACE mg/dL (NEGATIVE); SP GRAVITY URINE 1.022; TURBIDITY URINE CLEAR (CLEAR); UROBILINOGEN URINE NORMAL (NORMAL)
[2018-11-12 19:25] LABS: UR EPITHELIAL CELLS <10 /HPF (<10); URINE BACTERIA NEGATIVE /HPF; URINE RBC <10 /HPF (<10); URINE WBC <10 /HPF (<10)
[2018-11-12] MEDS: REQUIP PO SCH (20:07)
[2018-11-12] MEDS: LEXAPRO PO SCH (20:07)
[2018-11-12] MEDS: DESYREL PO SCH (20:10)
[2018-11-13] MEDS: NS 1,000 ML IV SCH ×4 (00:08→17:51)
[2018-11-13] MEDS: XARELTO PO SCH (05:58)
[2018-11-13] MEDS: PERCOCET-5 PO PRN ×3 (06:01→20:22)
[2018-11-13 07:20] LABS: BASO# 0.02 X1000 (0.0-0.2); BASO% 0.3 % (0.0-0.8); EOS# 0.34 X1000 (0.0-0.7); EOS% 5.1 % (0.0-10.0); HEMATOCRIT 48.2 % (37.0-47.0); HEMOGLOBIN 15.1 g/dL (12.0-16.0); LYMPH# 2.59 X1000 (1.2-3.4); MCH 32.1 PG (27-31); MCHC 31.3 g/dL (33-37); MCV 102.6 FL (81-99); MONO# 0.77 X1000 (0.11-0.59); MONO% 11.6 % (1.7-9.3); MPV 11.6 FL (7.4-10.4); NEUT# 2.92 X1000 (1.4-6.5); PLT 110 X1000 (130-400); RDW 11.9 % (11.5-14.5); WBC 6.64 X1000 (4.8-10.8)
[2018-11-13] MEDS: XANAX PO SCH ×3 (09:14→17:50)
[2018-11-13] MEDS: REQUIP PO SCH ×2 (09:14→20:21)
[2018-11-13] MEDS: LEXAPRO PO SCH (20:21)
[2018-11-13] MEDS: DESYREL PO SCH (20:22)
[2018-11-14] MEDS: NS 1,000 ML IV SCH ×4 (01:00→16:19)
[2018-11-14] MEDS: PERCOCET-5 PO PRN ×3 (05:33→18:14)
[2018-11-14] MEDS: XARELTO PO SCH (05:34)
[2018-11-14] MEDS: XANAX PO SCH ×3 (08:38→16:15)
[2018-11-14] MEDS: REQUIP PO SCH ×3 (08:38→20:12)
--- NOTE | 2018-11-14 15:38 | PROGRESS NOTE ---
DATE: 11/14/2018 SUBJECTIVE: I am seeing the patient in Dr. Pretty's absence. The patient is alert. She is talking to a relative or friend who is in the room with her now. She is also listening to country music. She has no specific complaints today. OBJECTIVE: Afebrile. Pulse 60 respirations 18, blood pressure 141/66. O2 sat on 2 L 95%.Cardiovascular: RRR. Lungs: Distant breath sounds, CTA. Abdomen: Soft, nontender, nondistended. Extremities: No major edema. No calf tenderness or cords. Small scab on the right upper tibial area and there is a larger one that is scabbed on the left mid to distal fibula area that is currently dressed. The patient is not eating well. Neurologic: Cranial nerves 2-12 are intact. Mild confusion noted. She is non combative and cooperative at this time. Alert and oriented x 2. LAB DATA: From admission on 11/13 reviewed. ASSESSMENT: 1. Confusion and weakness improved with decrease in sedative medications. 2. Volume depletion. 3. Hypotension, resolved with IV hydration. 4. Chronic headaches. 5. Chronic anxiety. 6. Chronic insomnia. 7. Chronic obstructive pulmonary disease. PLAN: Will continue present meds and decrease IV fluids slightly. Monitor on the Xanax, which has been lowered per Dr. Pretty. Also, patient on mid range dose trazodone at night. She is on Requip as well and on some Percocet. We will monitor those medicines vigorously here in the hospital. She is also on Xarelto per Dr. Pretty. It is unclear why she is on this. May have had some outpatient atrial fibrillation. I suspect, but that is not documented in the chart and I do not find her an atrial fibrillation at this time. We will leave her on that until Dr. Pretty returns tomorrow. cc: MD Mart Herr MD
[2018-11-14] MEDS: LEXAPRO PO SCH ×2 (19:51→20:12)
[2018-11-14] MEDS: DESYREL PO SCH ×2 (19:51→20:12)
[2018-11-15] MEDS: PERCOCET-5 PO PRN ×3 (04:20→21:55)
[2018-11-15] MEDS: XARELTO PO SCH ×2 (04:21→06:21)
[2018-11-15 07:30] LABS: BASO# 0.01 X1000 (0.0-0.2); BASO% 0.2 % (0.0-0.8); EOS% 3.3 % (0.0-10.0); HEMATOCRIT 39.8 % (37.0-47.0); LYMPH# 1.93 X1000 (1.2-3.4); LYMPH% 31.6 % (20.5-51.1); MCH 31.8 PG (27-31); MCHC 32.7 g/dL (33-37); MCV 97.3 FL (81-99); MONO# 0.67 X1000 (0.11-0.59); MPV 11.9 FL (7.4-10.4); NEUT% 53.9 % (42.2-75.2); PLT 100 X1000 (130-400); RBC 4.09 XMIL (4.2-5.4); RDW 11.2 % (11.5-14.5); WBC 6.11 X1000 (4.8-10.8)
[2018-11-15 07:50] LABS: AGAP 5; BUN 8 mg/dL (8-22); CALCIUM 8.4 mg/dL (8.8-10.2); CHLORIDE 99 mmol/L (98-107); COSMO 276; CREATININE 0.6 mg/dL (0.5-0.9); ESTIMATED GFR > 60; GLUCOSE 92 mg/dL (70-104); POTASSIUM 3.7 mmol/L (3.5-5.1); SODIUM 139 mmol/L (136-145); TCO2 35 mmol/L (25-35)
--- NOTE | 2018-11-15 08:12 | PROGRESS NOTE ---
DATE: 11/15/2018 OBJECTIVE: Vital signs are stable with temperature 98.7 degrees, heart rate 61, respirations 15, blood pressure 129/64 and O2 saturation on nasal oxygen 95%. LABORATORY: Hemoglobin 13, hematocrit 39.8, white blood count 6100. Sodium 139, potassium 3.7, BUN 8, creatinine 0.6, and calcium 8.4. ASSESSMENT AND PLAN: The patient seems more alert and is agreeable to going to a fdc at this point. Intelligence Manager has been consulted. Physical Therapy will be asked to assist ambulation. Disposition will be made when a fdc bed is available. cc: Mart Pretty MD
[2018-11-15] MEDS: NS 1,000 ML IV SCH (09:57)
[2018-11-15] MEDS: XANAX PO SCH ×3 (09:58→18:04)
[2018-11-15] MEDS: REQUIP PO SCH ×2 (09:58→21:48)
[2018-11-15] MEDS: DESYREL PO SCH (21:48)
[2018-11-15] MEDS: LEXAPRO PO SCH (21:48)
[2018-11-16] MEDS: NS 1,000 ML IV SCH ×3 (01:27→17:57)
[2018-11-16] MEDS: XARELTO PO SCH (06:46)
[2018-11-16] MEDS: PERCOCET-5 PO PRN ×2 (06:53→17:51)
--- NOTE | 2018-11-16 08:13 | PROGRESS NOTE ---
DATE: 11/16/2018 OBJECTIVE: Vital signs: Stable with temperature 97.9 degrees, heart rate 52, respirations 16, blood pressure 137/62, O2 saturation on nasal oxygen 94%. Pain level 7. General: She is alert and oriented. She rested better last evening. Chest: Clear to auscultation. Abdomen: Soft. Extremities: There is no ankle edema. She was able to get up with physical therapy yesterday and ambulate some. She feels like doing that today. After discussion with her yesterday, rehabilitation will be attempted instead of fci to return to assisted living at [facility]. If she does not improve to be able to ambulate on her own, fci placement will be considered. cc: Mart Pretty MD
[2018-11-16] MEDS: XANAX PO SCH ×3 (10:01→23:43)
[2018-11-16] MEDS: REQUIP PO SCH ×2 (10:01→23:43)
[2018-11-16] MEDS: DESYREL PO SCH (23:43)
[2018-11-16] MEDS: LEXAPRO PO SCH (23:44)
[2018-11-17] MEDS: XARELTO PO SCH (07:12)
[2018-11-17] MEDS: REQUIP PO SCH (09:30)
[2018-11-17] MEDS: XANAX PO SCH ×2 (09:30→15:05)
[2018-11-17] MEDS: PERCOCET-5 PO PRN (09:33)
--- NOTE | 2018-11-17 09:57 | PROGRESS NOTE ---
DATE: 11/17/2018 Vital signs stable with temperature of 98 degrees, heart rate 60, respirations 18, blood pressure 143/55, and O2 saturation on nasal oxygen 93%. Chest is clear. Abdomen is soft. The patient is alert. She is not eating any breakfast. PLAN: Continue physical therapy, and transfer to rehab when a bed is available. cc: Matr Pretty MD
--- NOTE | 2018-11-17 10:59 | DISCHARGE SUMMARY ---
ADMISSION DATE: 11/12/2018 DISCHARGE DATE: 11/17/2018 FINAL DIAGNOSES: 1. Lethargy. 2. Volume depletion. 3. Chronic headache. 4. Chronic anxiety. 5. Chronic obstructive pulmonary disease. 6. Hypoxia. DISCHARGE MEDICATIONS: Usual medications at home except Xanax is decreased from q.i.d. to t.i.d. HISTORY: This is one of several [facility] admissions for this 73-year-old white female who became weak, hypoxic and lethargic at her assisted living home, [facility]. She was brought to the emergency room for evaluation. She was hospitalized 11/03 through 11/07 with acute mental change and falls. She had stayed with a caregiver for several days who was a friend of the family and has power of civil attorney. She was eating poorly. Blood pressure in the office was 80/40 and respirations were shallow. She could not assist getting out of the car, and had to be manually picked up and put in the wheelchair. O2 saturation on 4 L nasal oxygen was 90%. Lungs were clear. She was admitted for hydration and further evaluation. INITIAL LABORATORY: Urinalysis normal. Hemoglobin 15.1, hematocrit 48.2, and white blood count 6,600. Sodium 142, potassium 3.7, BUN 11, creatinine 0.7, calcium 9.0, total protein 5.9, and albumin 3.5. HOSPITAL COURSE: After hydration and being placed back on her usual medicine except decrease in Xanax dosage, she slowly improved. She became ambulatory with physical therapy assistance. Appetite has been poor. Decision was made on DNR level 2 with only medications and oxygen. Disposition was discussed with the patient, and initially she was agreeable to correction, but after improvement, rehab is considered the best option. If she goes to rehab and is unable to walk or declines over the next couple of months, she most likely will need correction. cc: Mart Pretty MD
[2018-11-17 11:51] VITALS: BP 130/61
== END 2018-11-17 18:45 | DRG 641 ==
LOC: 3N 17:15
PROVIDERS: ADMIT Family Medicine; ATTEND Family Medicine
CPT/HCPCS: 71010; 71045; 80048; 80053; 81001; 85025; 87088; 97110; 97162; 97530; A9270; J7030

== ENCOUNTER 2019-03-18 12:03 | Inpatient (IN) ==
[2019-03-18 12:47] LABS: ALLEN TEST YES; BE 5.4 mmoll (-3.0-3.0); BLOOD TYPE ARTERIAL; METHB 1.1 % (0.0-1.5); O2(CT) 20.4 mL/dL (15.0-23.0); O2HB 92.2 % (95.0-99.0); PO2(98.6) 88 mmHg (60-100); SAMPLE BLOOD; SAO2 98.5 % (95.0-100.0); THB 15.7 g/dL (11.5-17.4); pH(98.6) 7.29 (7.35-7.45)
[2019-03-18 12:52] LABS: MODALITY VENTIMASK; PCO2(98.6) 73 mmHg (35-45)
--- NOTE | 2019-03-18 12:53 | Diag Imaging Result Doc PS360 ---
EXAM: CHEST-1 VIEW HISTORY: posible sepsis/SOB TECHNIQUE: Chest single view COMPARISON: 01/27/2019 FINDINGS: The lungs are well expanded. The heart is not enlarged. The vessels are borderline mildly distended. There are no infiltrates. No effusion identified. IMPRESSION: No pneumonia. Borderline mild pulmonary edema. Electronically signed by Tapan Prakash 03/18/2019 12:51 PM
[2019-03-18 13:04] LABS: BASO# 0.01 X1000 (0.0-0.2); BASO% 0.1 % (0.0-0.8); EOS% 1.1 % (0.0-10.0); HEMOGLOBIN 16.5 g/dL (12.0-16.0); IMM GRAN# 0.02 X1000 (0.0-0.04); IMM GRAN% 0.2 % (0.0-0.5); LYMPH# 1.43 X1000 (1.2-3.4); LYMPH% 15.8 % (20.5-51.1); MCH 31.5 PG (27-31); MCHC 32.4 g/dL (33-37); MCV 97.5 FL (81-99); MONO# 0.97 X1000 (0.11-0.59); MONO% 10.7 % (1.7-9.3); MPV 11.2 FL (7.4-10.4); NEUT# 6.53 X1000 (1.4-6.5); NEUT% 72.1 % (42.2-75.2); PLT 179 X1000 (130-400); RBC 5.23 XMIL (4.2-5.4); WBC 9.06 X1000 (4.8-10.8)
[2019-03-18 13:16] LABS: INR 0.89; PROTIME 12.1 Seconds (11.0-16.0)
[2019-03-18 13:19] LABS: URINE SOURCE CATH
[2019-03-18] MEDS ORDERED: ROCEPHIN IV ONE (13:19)
[2019-03-18 13:24] LABS: AGAP 10; ALB/GLOB RATIO 1.3; ALKALINE PHOSPHATASE 92 U/L (32-104); BUN 9 mg/dL (8-22); CALCIUM 8.9 mg/dL (8.8-10.2); CHLORIDE 95 mmol/L (98-107); CK PROFILE 66 U/L (24-173); COSMO 277; CREATININE 0.6 mg/dL (0.5-0.9); ESTIMATED GFR > 60; GLUCOSE 145 mg/dL (70-104); GOT 23 U/L (10-30); GPT 12 U/L (10-36); POTASSIUM 3.9 mmol/L (3.5-5.1); SODIUM 138 mmol/L (136-145); TCO2 33 mmol/L (25-35); TOTAL BILIRUBIN 0.28 mg/dL (0.20-1.00); TOTAL PROTEIN 7.2 g/dL (6.3-8.3)
[2019-03-18 13:26] LABS: BILIRUBIN URINE NEGATIVE (NEGATIVE); BLOOD URINE SMALL (NEGATIVE); COLOR YELLOW; GLUCOSE URINE NEGATIVE (NEGATIVE); KETONE URINE NEGATIVE (NEGATIVE); LEUKOCYTES URINE NEGATIVE (NEGATIVE); NITRITE URINE NEGATIVE (NEGATIVE); PROTEIN URINE TRACE mg/dL (NEGATIVE); TURBIDITY URINE CLEAR (CLEAR); UR EPITHELIAL CELLS <10 /HPF (<10); URINE BACTERIA NEGATIVE /HPF; URINE RBC <10 /HPF (<10); URINE WBC <10 /HPF (<10); UROBILINOGEN URINE NORMAL (NORMAL)
[2019-03-18] MEDS ORDERED: ROCEPHIN 1 GM in NS 50 ML IV ONE ×2 (13:29→14:53)
[2019-03-18] MEDS ORDERED: SOLU-MEDROL IV ONE (13:47)
[2019-03-18] MEDS ORDERED: ZITHROMAX 500 MG/NS 500 MG/250 ML IVPB IV ONE (13:48)
[2019-03-18 14:37] LABS: ALLEN TEST NO; BE 7.4 mmoll (-3.0-3.0); BLOOD TYPE ARTERIAL; HCO3-(ACT) 30.5 mmoll (20.0-26.0); METHB 1.4 % (0.0-1.5); O2(CT) 20.2 mL/dL (15.0-23.0); O2HB 92.4 % (95.0-99.0); PO2(98.6) 85 mmHg (60-100); SAMPLE BLOOD; SAO2 97.8 % (95.0-100.0); THB 15.5 g/dL (11.5-17.4); pH(98.6) 7.32 (7.35-7.45)
[2019-03-18 14:39] LABS: MODALITY BI PAP
[2019-03-18 14:41] LABS: PCO2(98.6) 71 mmHg (35-45)
--- NOTE | 2019-03-18 15:22 | PROVIDER DOCUMENTATION ---
This chart was entered by Milena Lange Scribe, acting as scribe for Kathi Welch MD. HPI-Respiratory General - General Chief Complaint: SEPSIS ALERT - D Stated Complaint: SOB Time Seen by Provider: 03/18/19 12:37 Source: patient, family Allergies/Adverse Reactions: Patient Allergies Allergy/AdvReac Type Severity Reaction Status Date / Time No Known Allergies Allergy Verified 03/18/19 12:59 Home Medications: Home Medication List Medication Instructions Recorded Confirmed Last Taken Type Escitalopram [Lexapro] 20 mg PO QHS 07/22/16 11/12/18 11/11/18 History Ropinirole HCl 2 mg PO BID 07/22/16 11/12/18 11/12/18 History Trazodone [Desyrel] 100 mg PO QHS 07/06/18 11/12/18 11/11/18 History Olanzapine 7.5 mg PO DAILY 11/12/18 11/12/18 11/12/18 History Alprazolam [Xanax] 1 mg PO TID@0900,1500,2100 tab 11/17/18 Unknown Rx Oxycodone/APAP 5 mg/325 mg 1.5 ea PO Q6H PRN PRN #60 tab 11/17/18 Unknown Rx [Percocet-5] Rivaroxaban [Xarelto] 10 mg PO DAILY@0600 tab 11/17/18 Unknown Rx - History of Present Illness-Resp Nature of Presenting Problem: [id number] presents tothis am with c/o worsening sob onset this am. pt is a smoker. pt saw pcp yesterday and was doing well woke this am with sob and has continued to decline throughout the day. pt daughter sts pt was struggling at home and checked her O2 sat and was 54 so they called 911 Quality of Pain: reports: fullness Severity in ED: reports: moderate Onset/Duration: reports: this morning Timing: reports: still present, constant, getting worse Exposure: reports: unknown cause Cough Quality/Degree: reports: mild, dry cough Episode Frequency: chronic episodes Current Respiratory Medication Therapy: Initiated see nurses note Modifying Factors: improves with: oxygen, sitting upright. worse with: exertion, lying down Associated Symptoms: reports: chest pain/soreness (fullness), cough, fever/chills, hyperventilating, shortness of breath, wheezing. denies: dizziness Similar Symptoms Previously?: Yes (copd) Recently seen or treated by another doctor?: Yes (saw pcp yesterday for normal check up) Review of Systems - Adult - REVIEW OF SYSTEMS - ADULT ROS:: ROS per family (daughter) Constitutional: reports: see HPI, chills, fever Eyes: reports: no symptoms reported Ears, Nose, Mouth & Throat: reports: no symptoms reported Cardiovascular: reports: see HPI, chest pain (fullness due to sob). denies: palpitations, syncope Respiratory: reports: see HPI, cough, dyspnea on exertion, shortness of breath, wheezing Gastrointestinal: denies: abdominal pain, diarrhea, nausea, vomiting Genitourinary: reports: no symptoms reported Musculoskeletal: denies: back pain, neck pain Integumentary: reports: no symptoms reported Neurological: denies: dizziness/vertigo, headache/migraines Psychiatric: reports: no symptoms reported Endocrine: reports: no symptoms reported Hematologic/Lymphatic: reports: no symptoms reported Allergic/Immunologic: reports: no symptoms reported All Other Systems: Reviewed and Negative Past History - Adult - PAST MEDICAL HISTORY-ADULT Review of Records: reports: Old Records Reviewed, Nursing Assessment Review, Medications Reviewed, Social history reviewed & non-contributory. Major Childhood Illnesses: reports: denies history Cardiovascular: reports: denies history Respiratory: reports: COPD Gastrointestinal: reports: denies history Obstetrical/Gynecological: reports: denies history Genitourinary: reports: denies history Musculoskeletal: reports: chronic pain Hand Dominance: Right Handed Neurological: reports: Seizures/Epilepsy Psychiatric: reports: denies history Endocrine/Immune: reports: thyroid disorder Other Conditions: reports: blindness, other cancer - PRIOR SURGERIES/PROCEDURES Surgical/Procedure History: reports: cholecystectomy, joint replacement - IMMUNIZATION STATUS Childhood Immunizations: See Nurse Assessment Flu Vaccine: See Nurse Assessment - FAMILY HISTORY Family History: reviewed, not pertinent - SOCIAL HISTORY Smoking: cigarettes, greater than 1 pack/day Provider spent 3-5 mins advising pt. on dangers of tobacco.: Discussed manners to quit use, and f/u contacts for add'l counseling. Substance Use: denies Alcohol Use Frequency: never Living Situation: alone Physical Exam-General - PHYSICAL EXAM-ADULT Initial Vital Signs Reviewed: Yes (was 82% on 4LPM via NC/fever 101.3) - CONSTITUTIONAL General Appearance: alert, moderate distress, obese. negative: appears well (ill appeariang) - EYES Eyes: PERRL/EOMI, pink conjunctivae - HEAD, EARS, NOSE, MOUTH & THROAT HENMT: moist mucous membranes, dental decay - NECK Neck: non-tender, full range of motion, supple, normal inspection - RESPIRATORY Respiratory: chest non-tender, respiratory distress, decreased breath sounds, wheezing, increased rate (23) - CARDIOVASCULAR Cardiovascular: normal peripheral pulses, regular rate, rhythm - GASTROINTESTINAL (ABDOMEN) Abdominal Exam: normal bowel sounds, non tender, soft - MUSCULOSKELETAL Back Exam: normal inspection, no CVA tenderness, no vertebral tenderness Extremity: normal range of motion, swelling (BLE edema), other (chronic skin condition on BLE) - SKIN Integumentary: normal color, normal turgor, warm/dry - NEUROLOGIC Neurologic: grossly normal, no motor/sensory deficits - PSYCHIATRIC Psych/Mental Status: normal mood/affect, normal thought content, normal thought process, oriented x 3 Progress - PLAN OF CARE/RESULTS Progress/Plan/Lab Results: Vital Signs - 8 hr 03/18/19 12:05 Temperature 101.3 F H Pulse Rate 95 H Respiratory Rate 23 Blood Pressure 125/91 O2 Sat by Pulse Oximetry 82 L Laboratory Results - last 24 hr 03/18/19 03/18/19 03/18/19 12:33 12:33 12:33 WBC 9.06 RBC 5.23 Hgb 16.5 H Hct 51.0 H MCV 97.5 MCH 31.5 H MCHC 32.4 L RDW Std Deviation 13.0 Plt Count 179 MPV 11.2 H Immature Gran % (Auto) 0.2 Neut % (Auto) 72.1 Lymph % (Auto) 15.8 L [place] % (Auto) 10.7 H Eos % (Auto) 1.1 Baso % (Auto) 0.1 Immature Gran # (Auto) 0.02 Neut # (Auto) 6.53 H Lymph # (Auto) 1.43 [place] # (Auto) 0.97 H Eos # (Auto) 0.10 Baso # (Auto) 0.01 PT 12.1 INR 0.89 PTT (Actin FS) 29.0 Specimen Type Sample Site pH pCO2 pO2 HCO3 Base Excess Oxyhemoglobin ABG O2 Sat (Calculated) ABG O2 Saturation ABG Carboxyhemoglobin ABG Methemoglobin Sukhwinder Test A-a O2 Difference Total Hemoglobin Lactate Liter Flow Blood Gas Modality FiO2 % Sodium 138 Potassium 3.9 Chloride 95 L Carbon Dioxide 33 Anion Gap 10 BUN 9 Creatinine 0.6 Estimated GFR/1.73 m2 > 60 BUN/Creatinine Ratio 15 Glucose 145 H Calculated Osmolality 277 Calcium 8.9 Total Bilirubin 0.28 AST 23 ALT 12 Alkaline Phosphatase 92 Creatine Kinase 66 Troponin T Total Protein 7.2 Albumin 4.0 Globulin 3.2 Albumin/Globulin Ratio 1.3 Plasma Lactate Urine Source Urine Color Urine Turbidity Urine pH Ur Specific [place] Urine Protein Ur Glucose (Stick) Ur Ketones (Stick) Urine Blood Urine Nitrite Urine Bilirubin Urobilinogen Dipstick Urine Leukocytes Urine WBC (Auto) Urine RBC (Auto) U Epithel Cells (Auto) Urine Bacteria (Auto) 03/18/19 03/18/19 03/18/19 12:33 12:33 12:45 WBC RBC Hgb Hct MCV MCH MCHC RDW Std Deviation Plt Count MPV Immature Gran % (Auto) Neut % (Auto) Lymph % (Auto) [place] % (Auto) Eos % (Auto) Baso % (Auto) Immature Gran # (Auto) Neut # (Auto) Lymph # (Auto) [place] # (Auto) Eos # (Auto) Baso # (Auto) PT INR PTT (Actin FS) Specimen Type ARTERIAL Sample Site R BRACHIAL pH 7.29 L pCO2 73 H* pO2 88 HCO3 29.0 H Base Excess 5.4 H Oxyhemoglobin 92.2 L ABG O2 Sat (Calculated) 20.4 ABG O2 Saturation 98.5 ABG Carboxyhemoglobin 5.30 H* ABG Methemoglobin 1.1 Sukhwinder Test YES A-a O2 Difference 177.0 Total Hemoglobin 15.7 Lactate 1.30 Liter Flow 15.0 Blood Gas Modality VENTIMASK FiO2 % 50.0 Sodium Potassium Chloride Carbon Dioxide Anion Gap BUN Creatinine Estimated GFR/1.73 m2 BUN/Creatinine Ratio Glucose Calculated Osmolality Calcium Total Bilirubin AST ALT Alkaline Phosphatase Creatine Kinase Troponin T < 0.010 Total Protein Albumin Globulin Albumin/Globulin Ratio Plasma Lactate 1.5 Urine Source Urine Color Urine Turbidity Urine pH Ur Specific [place] Urine Protein Ur Glucose (Stick) Ur Ketones (Stick) Urine Blood Urine Nitrite Urine Bilirubin Urobilinogen Dipstick Urine Leukocytes Urine WBC (Auto) Urine RBC (Auto) U Epithel Cells (Auto) Urine Bacteria (Auto) 03/18/19 13:11 WBC RBC Hgb Hct MCV MCH MCHC RDW Std Deviation Plt Count MPV Immature Gran % (Auto) Neut % (Auto) Lymph % (Auto) [place] % (Auto) Eos % (Auto) Baso % (Auto) Immature Gran # (Auto) Neut # (Auto) Lymph # (Auto) [place] # (Auto) Eos # (Auto) Baso # (Auto) PT INR PTT (Actin FS) Specimen Type Sample Site pH pCO2 pO2 HCO3 Base Excess Oxyhemoglobin ABG O2 Sat (Calculated) ABG O2 Saturation ABG Carboxyhemoglobin ABG Methemoglobin Sukhwinder Test A-a O2 Difference Total Hemoglobin Lactate Liter Flow Blood Gas Modality FiO2 % Sodium Potassium Chloride Carbon Dioxide Anion Gap BUN Creatinine Estimated GFR/1.73 m2 BUN/Creatinine Ratio Glucose Calculated Osmolality Calcium Total Bilirubin AST ALT Alkaline Phosphatase Creatine Kinase Troponin T Total Protein Albumin Globulin Albumin/Globulin Ratio Plasma Lactate Urine Source CATH Urine Color YELLOW Urine Turbidity CLEAR Urine pH 5.0 Ur Specific [place] 1.020 Urine Protein TRACE A Ur Glucose (Stick) NEGATIVE Ur Ketones (Stick) NEGATIVE Urine Blood SMALL A Urine Nitrite NEGATIVE Urine Bilirubin NEGATIVE Urobilinogen Dipstick NORMAL Urine Leukocytes NEGATIVE Urine WBC (Auto) <10 Urine RBC (Auto) <10 U Epithel Cells (Auto) <10 Urine Bacteria (Auto) NEGATIVE Orders Category Date Time Status Cardiac Monitoring DIRECTED Care 03/18/19 12:36 Active IV Insertion ORDERED Care 03/18/19 12:36 Completed Notify MD of + Sepsis Screen NOW Care 03/18/19 12:36 Active Notify Physician As Ordered Care 03/18/19 12:36 Active CHEST-1 VIEW [RAD] Stat Exams 03/18/19 12:36 Completed ABG [RESP] Routine Lab 03/18/19 12:45 Completed BLOOD CULTURE [BLDCUL] Stat Lab 03/18/19 12:46 Results CBC WITH DIFF [HEME] Stat Lab 03/18/19 12:33 Completed CK PROFILE [SP CHEM] Stat Lab 03/18/19 12:33 Completed COMPREHENSIVE METABOLIC PANEL [CHEM] Stat Lab 03/18/19 12:33 Completed LACTATE, PLASMA [CHEM] Lab 03/18/19 15:45 Uncollected LACTATE, PLASMA [CHEM] Lab 03/18/19 18:45 Uncollected LACTATE, PLASMA [CHEM] Q3H Lab 03/18/19 12:33 Completed PROTIME WITH INR [COAG] Stat Lab 03/18/19 12:33 Completed PTT [COAG] Stat Lab 03/18/19 12:33 Completed TROPONIN T Stat Lab 03/18/19 12:33 Completed URINALYSIS W/POSS RFLX CULT [URINALYSIS] Stat Lab 03/18/19 13:11 Completed Azithromycin 500 mg/Ns [Zithromax 500 mg/Ns] Med 03/18/19 13:48 Ordered 500 mg in 250 ml IV NOW CefTRIAXONE [Rocephin] 1 gm Med 03/18/19 13:29 Active 0.9% Sodium Chloride Inj [Ns] 50 ml IV NOW Methylprednisolone Sod Succ [Solu-Medrol] Med 03/18/19 13:47 Discontinued 125 mg IV NOW ONE Oxygen Device Stat Oth 03/18/19 12:36 Active Result Diagrams: 03/18/19 12:33 03/18/19 12:33 - REASSESSMENT Reassessment #1 Time Reassessed: 13:01 (pt in bed) Status: unchanged - EKG 1 Time of EKG reading by physician:: 12:24 EKG Read and Signed by:: Kathi Welch EKG Interpretation (*Must complete 3 of following elements*): Abnormal Rate: 115 Rhythm: undetermined rhythm [place]: normal QRS: other (low QRS/prolonged QT) MT Interval: normal ST Wave: normal (st/t wave abnormality, consider anterior ischemia) - XRAY 1 XRAY: Bilateral XRAY Study: Chest Impression: See EMR Report (EXAM: CHEST-1 VIEW HISTORY: posible sepsis/SOB TECHNIQUE: Chest single view COMPARISON: 01/27/2019 FINDINGS: The lungs are well expanded. The heart is not enlarged. The vessels are borderline mildly distended. There are no infiltrates. No effusion identified. IMPRESSION: No pneumonia. Borderline mild pulmonary edema. Electronically signed by Tapan Prakash 03/18/2019 12:51 PM 03/18/19 1251 Interpreting Physician: Tapan Prakash MD Dictated Date/Time: 03/18/19 1250 cc: Kathi Welch MD; Mart Pretty MD) - CONSULTS/PCP/HOSPITALIST Notification #1 *Consult/PCP/Hospitalist*: dr cristian pretty pcp Time Discussed: 13:50 Consult Disposition: Admit Departure - Departure Date of Disposition Decision: 03/18/19 Time of Disposition Decision: 13:50 DIAGNOSIS: SOB (shortness of breath), COPD exacerbation, Tobacco use disorder Disposition: ADMITTED INPATIENT 09 Certified Medical Emergency: Emergent Condition: Stable Additional Freetext Instructions: ED Follow Up Instructions: You have been treated by a care provider in the Emergency Department. These instructions are being provided to you so you can have an understanding of how to care for yourself upon discharge. Upon discharge from the Emergency Department, you are responsible for making arrangements for follow-up care by a physician of your choice. Take all prescribed medications as directed. Return to the Emergency Department immediately for any new or worsening symptoms. You may call the Physician Referral phone number at [phone] to obtain a list of Physicians who are taking new patients. Referrals and Follow-Ups: Mart Pretty MD [Primary Care Provider] - - Critical Care Note This patient required my direct & personal management of CC.: Yes Total Time (mins): 39 Critical Care Statement: This patient required my direct personal management to treat or rule out processes, the absence of which, could potentiallly result in sudden, clinically significant life or limb threatening deterioration. Attestation - Physician/ GLEN Attestation Patient care was provided by Advanced Practice Provider:: No The physician spent face to face time with patient:: Yes Advanced Practice Provider documentation review:: Supervising physician onsite and consulted in the evaluation and care of this patient. The physician did have a face to face encounter with the patient. This chart was documented by the indicated scribe, (Milena Lange Scribe) and accurately reflects the services I performed and decisions made by me, Kathi Welch MD, as attested by the provider's signature.
--- NOTE | 2019-03-18 15:46 | EKG Report ---
Test Performed on : 03/18/2019 12:24:19 PM Test Reason : ED. No order in [place] Blood Pressure : / mmHG Vent. Rate : 115 BPM Atrial Rate : 312 BPM P-R Int : 194 ms QRS Dur : 044 ms QT Int : 512 ms P-R-T Axes : 049 -08 176 degrees QTc Int : 708 ms Undetermined rhythm Low voltage QRS ST & T wave abnormality, consider anterior ischemia Prolonged QT Abnormal ECG When compared with ECG of 27-JAN-2019 11:40, (Unconfirmed) Current undetermined rhythm precludes rhythm comparison, needs review ST no longer elevated in Anterolateral leads Nonspecific T wave abnormality now evident in Inferior leads T wave inversion now evident in Lateral leads Unconfirmed Result
[2019-03-18] MEDS ORDERED: TYLENOL PO PRN (16:18)
--- NOTE | 2019-03-18 18:31 | HISTORY AND PHYSICAL ---
HISTORY: Ms. Castro is a 73-year-old white female, somewhat debilitated, and resident of assisted living facility who was seen in the office yesterday and seemed to be doing fairly well. She had an episode of progressive shortness of breath since 3 a.m., causing her to come to the emergency room. O2 saturation at home was in the 50s on room air. O2 saturation was low in the emergency room also. She was placed on BiPAP. ABGs on Ventimask revealed a pO2 to be 88, pCO2 73, and pH 7.29, Ventimask 50%. She was placed on BiPAP. ABGs on BiPAP revealed pO2 to be 85, pCO2 71, pH 7.32. She was somewhat lethargic on presentation but currently is able to communicate fairly well and mental status seems to be baseline. Chest x-ray in the emergency room revealed no pneumonia. There was mild pulmonary edema. No effusion or infiltrates were identified. She had some fever on admission with temperature 101 degrees. White blood count was 9000 with 72% neutrophils. She was given Rocephin and Zithromax IV in the emergency room. She is a smoker and continues to smoke despite contrary advice. She has oxygen at home but rarely uses it. PAST MEDICAL HISTORY: Surgeries include bilateral hip replacement and cholecystectomy. CURRENT MEDICATIONS: Trazodone 50 mg at bedtime, Lexapro 20 mg 1 daily, Percocet 7.5/325 one q.i.d., alprazolam 1 mg t.i.d., Requip 2 mg b.i.d. ALLERGIES: None known. REVIEW OF SYSTEMS: Significant for a long history of COPD. She was in a wheelchair in the office yesterday. She uses a walker and a cane at times in her assisted living facility. She has chronic pain especially due to chronic headaches. She also has some back pain and osteoarthritis. SOCIAL HISTORY: Lives alone with family checking on her fairly frequently. She smokes about a pack to a pack and half of cigarettes daily. She denies alcohol usage. PHYSICAL EXAMINATION: VITAL SIGNS: Temperature 101 degrees, heart rate 90, respirations 18, blood pressure 108/59, O2 saturation on BiPAP 95%. GENERAL: She is alert and answers simple questions appropriately. HEENT: Pupils equal, round, and reactive to light. NECK: Supple with no mass or lymphadenopathy. HEART: Regular in rate and rhythm with no murmur, rub or gallop. LUNGS: Clear with no rales or rhonchi. ABDOMEN: Soft with no mass, tenderness, or organomegaly. SKIN: Probable squamous carcinoma on her nose, lesions on her shoulders, either squamous or basal cell cancers. She has a light colored skin tone. RECTAL/GENITALIA: Deferred. NEUROLOGICAL: No focal weakness. IMPRESSION: 1. Chronic obstructive pulmonary disease exacerbation. 2. Chronic pain syndrome with headaches and osteoarthritis. 3. Chronic anxiety. 4. Chronic insomnia. 5. Chronic depression. PLAN: Admit for treatment with intravenous antibiotics, steroids, and nebulizer treatments. She is currently on BiPAP. Hopefully, this can be discontinued tomorrow. She will need to stay several days in the hospital. cc: Mart Pretty MD
[2019-03-18] MEDS: ZITHROMAX 500 MG/NS 500 MG/250 ML IVPB IV SCH (18:34)
[2019-03-18] MEDS: DUONEB (A & A) INH SCH ×2 (19:38→23:25)
[2019-03-18] MEDS: XANAX PO SCH (20:33)
[2019-03-18] MEDS: REQUIP PO SCH (20:33)
[2019-03-18] MEDS: MELATONIN PO SCH (20:33)
[2019-03-18] MEDS: LEXAPRO PO SCH (20:33)
[2019-03-18] MEDS: DESYREL PO SCH (20:33)
[2019-03-18] MEDS: PERCOCET-5 PO SCH (20:34)
[2019-03-18] MEDS: BACTROBAN OINTMENT TOP SCH (21:00)
[2019-03-19] MEDS: PERCOCET-5 PO SCH ×4 (02:59→22:31)
[2019-03-19] MEDS: DUONEB (A & A) INH SCH ×6 (03:38→22:40)
[2019-03-19] MEDS: ZYPREXA PO SCH (09:46)
[2019-03-19] MEDS: XANAX PO SCH ×4 (09:47→22:24)
[2019-03-19] MEDS: DIFLUCAN PO SCH (09:47)
[2019-03-19] MEDS: BACTROBAN OINTMENT TOP SCH ×2 (09:48→22:26)
[2019-03-19] MEDS: REQUIP PO SCH ×2 (09:48→22:25)
--- NOTE | 2019-03-19 13:40 | PROGRESS NOTE ---
DATE: 03/19/2019 SUBJECTIVE: Ms. Castro is doing fair. The patient seems to be more alert and awake. She denied any high-grade fever or chills. Does have cough with scanty sputum production. No nausea or vomiting. Denied any diarrhea. No typical chest pain. Patient admitted with respiratory failure, history suggestive of shortness of breath, hypoxemia. The patient denied any typical chest pain. The patient does have generalized chronic pain on pain medication. No dysuria or hematuria. No diarrhea, blood, or mucus in the stool. History part is limited. OBJECTIVE: Vital signs: Noted. Skin: Senile turgor. Neck: Supple. No JVD. Lungs: Bibasilar crepitation. Heart: S1 and S2 heard. Abdomen: Soft, globular. Bowel sounds present. Extremities: No cyanosis, clubbing. No acute DVT. GRAIN BUYER: Alert, awake. Answering questions fair. Able to move all 4 limbs. ADMISSION LABORATORY DATA: Noted. CONSIDERATION: 1. Acute hypoxemic and hyperbaric respiratory failure. 2. COPD. Chest x-ray revealed mild pulmonary edema. 3. Chronic pain. 4. Anxiety. 5. Insomnia. 6. Osteoarthritis. 7. COPD exacerbation. PLAN: I added some steroid. Going to check appropriate labs. Continue IV antibiotics. Bronchodilator treatment. Close observation. We will get pulmonary consult with Dr. Hernandez. GI and DVT prophylaxis. The patient is on BiPAP. cc: MD Mart Sheridan MD
[2019-03-19] MEDS: SODIUM CHLORIDE 0.9% INJ SCH (14:15)
[2019-03-19] MEDS: PROTONIX IV SCH (14:15)
[2019-03-19] MEDS: LOVENOX SUBQ SCH (14:16)
[2019-03-19] MEDS: ROCEPHIN 1 GM in NS 50 ML IV SCH (14:16)
[2019-03-19] MEDS: SOLU-MEDROL IV SCH ×2 (14:16→22:26)
[2019-03-19] MEDS: ZITHROMAX 500 MG/NS 500 MG/250 ML IVPB IV SCH (17:58)
[2019-03-19] MEDS: LEXAPRO PO SCH (22:25)
[2019-03-19] MEDS: MELATONIN PO SCH (22:25)
[2019-03-19] MEDS: DESYREL PO SCH (23:49)
[2019-03-20] MEDS: PERCOCET-5 PO SCH ×2 (02:29→09:56)
[2019-03-20] MEDS: DUONEB (A & A) INH SCH ×12 (03:37→23:25)
[2019-03-20] MEDS: SOLU-MEDROL IV SCH ×3 (04:57→21:41)
[2019-03-20 07:07] LABS: EOS# 0.01 X1000 (0.0-0.7); EOS% 0.1 % (0.0-10.0); HEMATOCRIT 45.7 % (37.0-47.0); HEMOGLOBIN 14.5 g/dL (12.0-16.0); IMM GRAN# 0.02 X1000 (0.0-0.04); IMM GRAN% 0.3 % (0.0-0.5); LYMPH% 6.3 % (20.5-51.1); MCH 30.6 PG (27-31); MCHC 31.7 g/dL (33-37); MCV 96.4 FL (81-99); MONO# 0.21 X1000 (0.11-0.59); MONO% 2.6 % (1.7-9.3); MPV 11.3 FL (7.4-10.4); NEUT# 7.23 X1000 (1.4-6.5); NEUT% 90.7 % (42.2-75.2); PLT 159 X1000 (130-400); RBC 4.74 XMIL (4.2-5.4); RDW 12.1 % (11.5-14.5); WBC 7.97 X1000 (4.8-10.8)
[2019-03-20 07:15] LABS: AGAP 12; ALB/GLOB RATIO 1.1; ALBUMIN 3.3 g/dL (3.5-5.0); ALKALINE PHOSPHATASE 77 U/L (32-104); BUN 10 mg/dL (8-22); CALCIUM 9.2 mg/dL (8.8-10.2); CHLORIDE 99 mmol/L (98-107); COSMO 286; CREATININE 0.6 mg/dL (0.5-0.9); ESTIMATED GFR > 60; GLUCOSE 199 mg/dL (70-104); GOT 18 U/L (10-30); GPT 9 U/L (10-36); MAGNESIUM 1.9 mg/dL (1.5-2.7); POTASSIUM 3.6 mmol/L (3.5-5.1); SODIUM 141 mmol/L (136-145); TCO2 30 mmol/L (25-35); TOTAL BILIRUBIN 0.17 mg/dL (0.20-1.00); TOTAL PROTEIN 6.4 g/dL (6.3-8.3)
[2019-03-20] MEDS ORDERED: XANAX PO PRN (08:12)
[2019-03-20 08:45] LABS: BLOOD TYPE ARTERIAL; SAMPLE BLOOD
[2019-03-20 08:46] LABS: ALLEN TEST YES; HCO3-(ACT) 31.7 mmoll (20.0-26.0); METHB 1.1 % (0.0-1.5); O2(CT) 18.9 mL/dL (15.0-23.0); O2HB 90.3 % (95.0-99.0); PO2(98.6) 53 mmHg (60-100); THB 14.9 g/dL (11.5-17.4); pH(98.6) 7.38 (7.35-7.45)
[2019-03-20 08:53] LABS: MODALITY VENTIMASK; PCO2(98.6) 62 mmHg (35-45)
[2019-03-20] MEDS: BACTROBAN OINTMENT TOP SCH ×2 (09:53→21:32)
[2019-03-20] MEDS: REQUIP PO SCH ×2 (09:53→21:39)
[2019-03-20] MEDS: DIFLUCAN PO SCH (09:53)
[2019-03-20] MEDS: ZYPREXA PO SCH (09:53)
[2019-03-20 09:58] LABS: BANDS 4 % (0-1); LYMPHS 4 % (21-51); SEGS 92 % (42-75)
--- NOTE | 2019-03-20 10:46 | PROGRESS NOTE ---
DATE: 03/20/2019 SUBJECTIVE: Rissa Castro is doing fair. The patient is not a good historian. Mild cough, no expectoration. Oral intake is poor. No nausea or vomiting. No dysuria or hematuria. The patient is complaining of generalized pain. Patient admitted with hypoxemic and hypercarbic respiratory failure, COPD exacerbation. OBJECTIVE: Vital Signs: Noted. Neck: Supple. No JVD. Lungs: Bibasilar crepitations. Occasional wheezing. Skin: Senile turgor. Cardiovascular: S1 and S2 heard. Abdomen: Soft, nontender. Bowel sounds present. Extremities: No cyanosis, clubbing. No acute DVT. Neurologic: Alert, awake. Answering questions fair. Able to move all 4 limbs. LABORATORY DATA: Done today, WBC count 7.97, hemoglobin 14.5, hematocrit 45.7, platelet count 159,000. Blood gas: pH 7.38, pCO2 62, PO2 was 53. This was done on Ventimask. I am going to resume her BiPAP. [employer] following patient with us. Electrolytes were fairly benign. CONSIDERATION: 1. Acute hypoxemic and hypercarbic respiratory failure. 2. Chronic obstructive pulmonary disease exacerbation. 3. Chronic pain. 4. Headache. PLAN: Will do BiPAP, IV antibiotics, bronchodilator treatment. I am going to get a chest x-ray. Continue rest of the treatment and close observation. cc: MD Mart Sheridan MD
--- NOTE | 2019-03-20 11:05 | Diag Imaging Result Doc PS360 ---
CHEST-PORTABLE - 03/20/2019 INDICATION: sob COMPARISON: 03/18/2019 FINDINGS: There is cardiomegaly and pulmonary vascular congestion. There are some new infiltrates in the lung bases bilaterally. No large pleural effusion. IMPRESSION: Nonspecific findings. Electronically signed by Carmelo Theodore 03/20/2019 11:03 AM
--- NOTE | 2019-03-20 13:20 | CONSULTATION ---
DATE OF CONSULTATION: 03/20/2019 REQUESTING PROVIDER: Dr. Leopoldo Arango. REASON FOR CONSULTATION: Respiratory failure. HISTORY OF PRESENT ILLNESS: This is a 73-year-old, female with a medical history of COPD with chronic hypoxic respiratory failure, ongoing tobacco abuse, seizure, thyroid disorder, legal blindness secondary to macular degeneration, skin cancer, cerebrovascular accident, insomnia, chronic headache, anxiety, and depression. She presented to the ER on 03/18/2019 with acutely worsening shortness of breath. Initial chest x-ray showed no pneumonia, but borderline mild pulmonary edema. ABG revealed partially compensated respiratory acidosis with pH 7.32, pCO2 of 71, and HC03 of 30.5, so she was put on BiPAP and admitted with COPD exacerbation. The patient currently is lying in bed with some mildly increased work of breathing. She is on a Ventimask with FiO2 of 50% and oxygen saturations stays at 96%. She appears very lethargic. When I asked her questions, she basically was mumbling and it was very difficult to understand what she was talking. She did shake her head when I asked whether she has chest pain or stomach pain. There is no family at the bedside. All other information is obtained from the E-chart. PAST MEDICAL HISTORY: 1. COPD with chronic hypoxic respiratory failure; on home oxygen but patient does not use it regularly. Patient did have a CTPA on 08/15/2013 revealing 1cm nodular density at the posterior right apex. Currently, I can't find any followup information about this nodule. 2. Seizure. 3. Thyroid disorder. 4. Legal blindness secondary to macular degeneration. 5. Skin cancer, basal cell carcinoma. 6. Cerebrovascular accident in August 2013. 7. Insomnia. 8. Chronic headache, on Percocet 7.5 at home. 9. Anxiety and depression. 10. Chronic pain syndrome. 11. History of small bowel obstruction. PAST SURGICAL HISTORY: 1. Cholecystectomy. 2. Left bipolar hemiarthroplasty by Dr. Bradshaw on 03/21/2015. 3. Right bipolar hemiarthroplasty by Dr. Magana on 09/14/2017. 4. Exploratory laparotomy. SOCIAL HISTORY: The patient is a chronic smoker. Per the E chart from 2013, she smoked 2 packs per day for more than 40 years. She has no history of alcohol or illicit drug use. She is a resident at an assisted living facility. FAMILY HISTORY: Unknown. ALLERGIES: No known drug allergies. REVIEW OF SYSTEMS: Unable to be obtained. PHYSICAL EXAMINATION: Vital Signs: Temperature is 98.0 degrees, blood pressure 101/48, pulse 65, respiratory rate 20, oxygen saturation 93% on Ventimask with FiO2 of 50%. General: Chronically ill-appearing, on a Ventimask. Very lethargic. Having multiple skin lesions on her face. HEENT: Atraumatic, normocephalic. Trachea midline. Mucosa pink and slightly dry. Respiratory: Mildly labored with increased work of breathing. Very shallow; Symmetrical excursion. Auscultation revealed diminished breathing sounds bilaterally. Cardiovascular: Regular rate and rhythm. Gastrointestinal: Soft. Normoactive bowel sounds in all 4 quadrants. Extremities: No pedal edema. No cyanosis. No clubbing. Chronic discoloration on bilateral anterior grullon area. Neurologic: Very lethargic. Able to follow commands to squeeze my hand, with weakness on bilateral upper extremities noted. LAB DATA: White blood cells 7.97, hemoglobin 14.5, hematocrit 45.7, platelets 159,000. Sodium 141, potassium 3.6, chloride 99, carbon dioxide 30, BUN 10, creatinine 0.6, and glucose 199. ABG, pH 7.38, pCO2 of 62, PO2 of 53, HC03 of 31.7, base excess 9.0, oxyhemoglobin 90.3, and lactate 2.70. IMAGING DATA: Chest x-ray showed cardiomegaly and pulmonary vascular congestion with some new infiltrates in the lung bases bilaterally. No large pleural effusions. ASSESSMENT: This is a 73-year-old, female with a medical history of chronic obstructive pulmonary disease with chronic hypoxic respiratory failure and ongoing tobacco abuse, seizure, thyroid disorder, legal blindness secondary to macular degeneration, skin cancer, cerebrovascular accident, insomnia, chronic headache, anxiety, and depression. She has been admitted since 03/18/2019 with chronic obstructive pulmonary disease exacerbation. 1. Acute on chronic hypoxic respiratory failure. 2. Acute hypercapnic respiratory failure. 3. Chronic obstructive pulmonary disease exacerbation. 4. Ongoing tobacco abuse. 5. Pulmonary edema. 6. History of 1 cm nodular density at the posterior right apex, without following up information. PLAN: 1. Continue supplemental oxygen. Start BiPAP. 2. Continue antibiotic, steroid, and bronchodilators. 3. Follow up with ABG, D-dimer, and blood culture. 4. Continue GI and DVT prophylaxis. 5. Will educated patient on smoking cessation when appropriate. 6. Further recommendations pending hospital course. Thank you for the courtesy of this consult. Dictated by ARI Stoner for Jose Hernandez MD cc: ARI Stoner MD Robert Allen, MD [facility]
[2019-03-20] MEDS: SODIUM CHLORIDE 0.9% INJ SCH (13:52)
[2019-03-20] MEDS: PERCOCET-5 PO PRN ×2 (13:52→21:40)
[2019-03-20] MEDS: LOVENOX SUBQ SCH (13:52)
[2019-03-20] MEDS: PROTONIX IV SCH (13:52)
[2019-03-20] MEDS: XANAX PO SCH ×2 (13:53→21:39)
[2019-03-20] MEDS: ROCEPHIN 1 GM in NS 50 ML IV SCH (16:41)
[2019-03-20] MEDS: ZITHROMAX 500 MG/NS 500 MG/250 ML IVPB IV SCH (17:21)
[2019-03-20] MEDS: MELATONIN PO SCH (21:39)
[2019-03-20] MEDS: LEXAPRO PO SCH (21:39)
[2019-03-20] MEDS: DESYREL PO SCH (21:40)
[2019-03-21] MEDS: DUONEB (A & A) INH SCH ×10 (03:53→22:39)
[2019-03-21 04:12] LABS: ALLEN TEST YES; BE 9.8 mmoll (-3.0-3.0); BLOOD TYPE ARTERIAL; HCO3-(ACT) 32.5 mmoll (20.0-26.0); METHB 0.9 % (0.0-1.5); O2(CT) 19.7 mL/dL (15.0-23.0); O2HB 94.6 % (95.0-99.0); PO2(98.6) 70 mmHg (60-100); SAMPLE BLOOD; SAO2 97.1 % (95.0-100.0); THB 14.8 g/dL (11.5-17.4); pH(98.6) 7.44 (7.35-7.45)
[2019-03-21 04:13] LABS: MODALITY BI PAP; PCO2(98.6) 53 mmHg (35-45)
[2019-03-21] MEDS: SOLU-MEDROL IV SCH ×3 (05:53→21:42)
--- NOTE | 2019-03-21 08:31 | PROGRESS NOTE ---
DATE: 03/21/2019 IMAGING AND LABORATORY DATA: Chest x-ray shows some increase in interstitial markings on the right and left lower lung. These appear a little more prominent than previously. Blood cultures have revealed no growth. Blood gases reveal pH 7.44, pCO2 of 53, PO2 of 70 on BiPAP with 40% O2. O2 saturation on room air is 89%. Hemoglobin 14.5, hematocrit 45.7, white blood count 7900. Sodium 141, potassium 3.6, BUN 10, creatinine 0.6, glucose 199. Albumin low at 3.3. Lactate was elevated over 2. OBJECTIVE: Vital Signs: Temperature 97.7 degrees axillary, heart rate 60, respirations 18, blood pressure 180/59, O2 saturation on room air at 89%. General: She seems to be fairly comfortable with normal respiratory rate. Lungs: Fairly clear. Abdomen: Soft. PLAN: Will have her sit in the chair and ambulate today. Discharge will be considered tomorrow. She will most likely need nasal oxygen at home. cc: Mart Pretty MD
[2019-03-21] MEDS: DIFLUCAN PO SCH (09:45)
[2019-03-21] MEDS: XANAX PO SCH ×3 (09:45→21:42)
[2019-03-21] MEDS: REQUIP PO SCH ×2 (09:45→21:42)
[2019-03-21] MEDS: ZYPREXA PO SCH (09:45)
[2019-03-21] MEDS: HYZAAR 50/12.5 MG PO SCH (09:46)
[2019-03-21] MEDS: PERCOCET-5 PO PRN ×2 (09:49→16:14)
[2019-03-21] MEDS: BACTROBAN OINTMENT TOP SCH ×2 (09:50→21:41)
[2019-03-21] MEDS: SODIUM CHLORIDE 0.9% INJ SCH (12:59)
[2019-03-21] MEDS: PROTONIX IV SCH (12:59)
[2019-03-21] MEDS: LOVENOX SUBQ SCH (12:59)
[2019-03-21] MEDS: ROCEPHIN 1 GM in NS 50 ML IV SCH (14:39)
[2019-03-21] MEDS: ZITHROMAX 500 MG/NS 500 MG/250 ML IVPB IV SCH (17:25)
[2019-03-21] MEDS: DESYREL PO SCH (21:42)
[2019-03-21] MEDS: MELATONIN PO SCH (21:42)
[2019-03-21] MEDS: LEXAPRO PO SCH (21:42)
[2019-03-22] MEDS: DUONEB (A & A) INH SCH ×12 (03:40→22:49)
[2019-03-22 04:53] LABS: ALLEN TEST YES; BE 11.7 mmoll (-3.0-3.0); BLOOD TYPE ARTERIAL; METHB 1.2 % (0.0-1.5); O2(CT) 20.1 mL/dL (15.0-23.0); O2HB 94.3 % (95.0-99.0); PO2(98.6) 72 mmHg (60-100); SAMPLE BLOOD; SAO2 97.1 % (95.0-100.0); THB 15.2 g/dL (11.5-17.4); pH(98.6) 7.45 (7.35-7.45)
[2019-03-22 04:54] LABS: MODALITY CANNULA; PCO2(98.6) 55 mmHg (35-45)
[2019-03-22] MEDS: SOLU-MEDROL IV SCH (05:26)
--- NOTE | 2019-03-22 08:25 | PROGRESS NOTE ---
DATE: 03/22/2019 OBJECTIVE: Vital signs: Temperature 97.6 degrees, heart rate 52, respirations 16, blood pressure 137/57. O2 saturation on 4 L nasal oxygen 96%. General: The patient is comfortable and feeling better. She rested fairly well last night. Chest: Clear with no rales or rhonchi. PLAN: Change to p.o. prednisone. O2 saturation will be checked on room air after ambulation to help her qualify for home O2. She does have some home O2, but this will be checked to get a baseline on room air oxygen. cc: Mart Pretty MD
[2019-03-22] MEDS: ZYPREXA PO SCH (09:23)
[2019-03-22] MEDS: HYZAAR 50/12.5 MG PO SCH (09:23)
[2019-03-22] MEDS: BACTROBAN OINTMENT TOP SCH ×2 (09:24→21:29)
[2019-03-22] MEDS: REQUIP PO SCH ×2 (09:24→21:28)
[2019-03-22] MEDS: DIFLUCAN PO SCH (09:24)
[2019-03-22] MEDS: XANAX PO SCH ×4 (09:24→21:27)
[2019-03-22] MEDS: PREDNISONE PO SCH ×2 (09:26→21:28)
[2019-03-22] MEDS: PERCOCET-5 PO PRN ×2 (09:50→17:46)
[2019-03-22] MEDS: LOVENOX SUBQ SCH (12:29)
[2019-03-22] MEDS: PROTONIX IV SCH (12:29)
[2019-03-22] MEDS: SODIUM CHLORIDE 0.9% INJ SCH (12:29)
[2019-03-22] MEDS: KEFLEX PO SCH ×2 (16:17→21:27)
[2019-03-22] MEDS: ZITHROMAX 500 MG/NS 500 MG/250 ML IVPB IV SCH (17:05)
[2019-03-22] MEDS: LEXAPRO PO SCH (21:27)
[2019-03-22] MEDS: MELATONIN PO SCH (21:28)
[2019-03-22] MEDS: DESYREL PO SCH (21:29)
[2019-03-23] MEDS: KEFLEX PO SCH ×4 (02:36→21:45)
[2019-03-23] MEDS: PERCOCET-5 PO PRN ×4 (02:44→21:43)
[2019-03-23] MEDS: DUONEB (A & A) INH SCH ×7 (03:29→22:55)
[2019-03-23 05:01] LABS: ALLEN TEST YES; BE 11.9 mmoll (-3.0-3.0); BLOOD TYPE ARTERIAL; HCO3-(ACT) 34.1 mmoll (20.0-26.0); METHB 1.3 % (0.0-1.5); O2(CT) 21.4 mL/dL (15.0-23.0); O2HB 95.5 % (95.0-99.0); PCO2(98.6) 46 mmHg (35-45); PO2(98.6) 86 mmHg (60-100); SAMPLE BLOOD; SAO2 98.2 % (95.0-100.0); THB 15.9 g/dL (11.5-17.4); pH(98.6) 7.51 (7.35-7.45)
[2019-03-23 05:02] LABS: MODALITY CANNULA
[2019-03-23] MEDS: PREDNISONE PO SCH ×2 (09:14→21:45)
[2019-03-23] MEDS: XANAX PO SCH ×4 (09:14→21:46)
[2019-03-23] MEDS: DIFLUCAN PO SCH (09:14)
[2019-03-23] MEDS: HYZAAR 50/12.5 MG PO SCH (09:14)
[2019-03-23] MEDS: REQUIP PO SCH ×2 (09:15→21:45)
[2019-03-23] MEDS: ZYPREXA PO SCH (09:15)
--- NOTE | 2019-03-23 09:43 | PROGRESS NOTE ---
DATE: 03/23/2019 OBJECTIVE: Vital signs stable with temperature 97.7 degrees, heart rate 50, respirations 20, blood pressure 132/59, O2 saturation room air 93%; earlier it was 94% on 4 L nasal oxygen. She currently has oxygen on. She is alert and oriented. She is anxious to go home. Disposition is pending. Chest is clear to auscultation. Abdomen is soft. PLAN: Physical Therapy to ambulate, disposition soon. cc: Mart Pretty MD
[2019-03-23] MEDS: PROTONIX IV SCH (13:52)
[2019-03-23] MEDS: LOVENOX SUBQ SCH (13:52)
[2019-03-23] MEDS: BACTROBAN OINTMENT TOP SCH ×2 (13:52→23:45)
[2019-03-23] MEDS: ZITHROMAX 500 MG/NS 500 MG/250 ML IVPB IV SCH (18:28)
[2019-03-23] MEDS: LEXAPRO PO SCH (21:46)
[2019-03-23] MEDS: MELATONIN PO SCH (21:46)
[2019-03-23] MEDS: DESYREL PO SCH (21:46)
[2019-03-24] MEDS: KEFLEX PO SCH ×4 (01:22→20:02)
[2019-03-24] MEDS: DUONEB (A & A) INH SCH ×6 (03:45→16:04)
[2019-03-24] MEDS: PERCOCET-5 PO PRN ×3 (06:01→20:05)
[2019-03-24 06:48] LABS: EOS# 0.02 X1000 (0.0-0.7); EOS% 0.2 % (0.0-10.0); HEMATOCRIT 45.8 % (37.0-47.0); IMM GRAN# 0.08 X1000 (0.0-0.04); LYMPH# 1.36 X1000 (1.2-3.4); LYMPH% 16.6 % (20.5-51.1); MCHC 32.8 g/dL (33-37); MCV 94.6 FL (81-99); MONO# 0.92 X1000 (0.11-0.59); MONO% 11.3 % (1.7-9.3); MPV 11.8 FL (7.4-10.4); NEUT# 5.79 X1000 (1.4-6.5); NEUT% 70.9 % (42.2-75.2); PLT 144 X1000 (130-400); RBC 4.84 XMIL (4.2-5.4); RDW 12.8 % (11.5-14.5); WBC 8.17 X1000 (4.8-10.8)
[2019-03-24 07:08] LABS: AGAP 11; BUN 31 mg/dL (8-22); CALCIUM 8.1 mg/dL (8.8-10.2); CHLORIDE 99 mmol/L (98-107); COSMO 296; CREATININE 0.6 mg/dL (0.5-0.9); ESTIMATED GFR > 60; GLUCOSE 182 mg/dL (70-104); POTASSIUM 3.9 mmol/L (3.5-5.1); SODIUM 143 mmol/L (136-145); TCO2 33 mmol/L (25-35)
--- NOTE | 2019-03-24 07:08 | Diag Imaging Result Doc PS360 ---
EXAM: CHEST-1 VIEW 03/24/2019 HISTORY: SOB TECHNIQUE: AP portable at 0556 COMMENT: There has been improvement in the bibasilar opacities present on 03/20/2019. No new abnormalities are present. IMPRESSION: Improved bibasilar pneumonia. Electronically signed by Davi Nicolas 03/24/2019 7:06 AM
[2019-03-24] MEDS: XANAX PO SCH ×4 (08:48→20:02)
[2019-03-24] MEDS: HYZAAR 50/12.5 MG PO SCH (08:48)
[2019-03-24] MEDS: DIFLUCAN PO SCH (08:48)
[2019-03-24] MEDS: PREDNISONE PO SCH ×2 (08:48→20:02)
[2019-03-24] MEDS: ZYPREXA PO SCH (08:48)
[2019-03-24] MEDS: REQUIP PO SCH (08:48)
[2019-03-24] MEDS: BACTROBAN OINTMENT TOP SCH (08:52)
--- NOTE | 2019-03-24 09:06 | DISCHARGE SUMMARY ---
ADMISSION DATE: 03/18/2019 DISCHARGE DATE: 03/24/2019 FINAL DIAGNOSES: 1. Chronic obstructive pulmonary disease exacerbation. 2. Acute respiratory failure. 3. Mild bilateral pneumonia. 4. Chronic pain with headache. 5. Chronic anxiety. 6. Insomnia. DISCHARGE MEDICATIONS: Usual medication at home plus Keflex 500 mg (20) 1 q.i.d. and losartan/hydrochlorothiazide 50/12.5 one daily. HISTORY: This is one of numerous [facility] admissions for this 73-year-old, white female who presented to the emergency room with progressive shortness of breath for a couple of days. She was hypoxic and CO2 was elevated. She was placed on BiPAP in the emergency room and transferred to the floor on BiPAP. Initial blood gases on Ventimask 50% O2 revealed a PO2 of 88, pCO2 of 73, pH 7.29. Hemoglobin was 16.5, hematocrit 51.0, white blood count 9000. Sodium 138, potassium 3.9, BUN 9, creatinine 0.6, glucose 145. Liver functions normal. Troponin less than 0.01. Plasma lactate 1.5. HOSPITAL COURSE: She was placed on intravenous antibiotics with ceftriaxone and Zithromax. Pulmonary consult with Dr. Hernandez was made. Chest x-ray initially showed no infiltrates, but after a few days showed mild bilateral infiltrates. She remained afebrile, but continued to need BiPAP intermittently. BiPAP was discontinued a few days ago, and patient has continued to improve clinically. She is alert and desires to go home. Discussion was made about snf and social service consult was obtained. She was given a couple of days with physical therapy to increase strength. She was changed to p.o. Keflex yesterday. O2 saturation on 4 L nasal oxygen is 97%. She has oxygen at home and will continue to use this at 4 L. Home health will be asked to assist continued care at home. She is again advised to discontinue smoking or she will most likely be back in the hospital again soon. cc: Mart Pretty MD
[2019-03-24] MEDS: PROTONIX IV SCH (14:15)
[2019-03-24] MEDS: SODIUM CHLORIDE 0.9% INJ SCH (14:16)
[2019-03-24] MEDS ORDERED: MIRALAX PO ONE (14:56)
[2019-03-24] MEDS ORDERED: DULCOLAX PR ONE (17:30)
[2019-03-24 19:50] VITALS: BP 115/54
[2019-03-24] MEDS: DESYREL PO SCH (20:02)
--- NOTE | 2019-03-25 05:21 | DISCHARGE SUMMARY ---
ADMISSION DATE: 03/18/2019 DISCHARGE DATE: 03/24/2019 ADDENDUM: A decision was made by the patient in consultation with social service to go to rehab instead of home. She apparently had some rehab days remaining. She continues to be somewhat weak and is slow to ambulate with assistance and physical therapy. Physical Therapy will be continued at rehab. She will be on 4 L nasal oxygen. She was given a written prescription for Percocet 7.5/325 (#60) to take q.i.d. for pain, and Xanax 1 mg (60) to take 1 q.i.d. for anxiety. She will be followed in the office a week after discharge from rehab. cc: Mart Pretty MD
== END 2019-03-24 21:14 | DRG 189 ==
LOC: SUPCPDRO → ED 12:03 → 3N 14:46
PROVIDERS: ADMIT Family Medicine; ATTEND Family Medicine

== ENCOUNTER 2019-09-01 16:02 | Inpatient (IN) ==
[2019-09-01] MEDS: NS 1,000 ML IV SCH (18:04)
--- NOTE | 2019-09-01 18:04 | Diag Imaging Result Doc PS360 ---
EXAM: CHEST-PORTABLE - 09/01/2019 HISTORY: dyspnea TECHNIQUE: Portable chest COMPARISON: 03/24/2019 FINDINGS: Heart size is normal. Lungs appear essentially clear. There is no pleural effusion or pneumothorax identified. IMPRESSION: No evidence of acute disease. Electronically signed by Kaleb Pedraza 09/01/2019 6:01 PM
--- NOTE | 2019-09-01 18:52 | HISTORY AND PHYSICAL ---
CHIEF COMPLAINT: Lethargy and inability to get up or walk. PRESENT ILLNESS: This is one of several [facility] admissions for this 74-year-old white female with COPD and recent weakness and anorexia. She was seen in the office a couple of days ago. She was weak and fell while trying to get into her vehicle. There was no apparent injury other than contusion of her left hip although there was no discoloration or swelling. She came in also because of dysuria, but was unable to obtain a urine specimen. She had been on Levaquin, and then was changed to Keflex. She had a low-grade fever today. Her appetite has been decreased for 3 or 4 days. Skin turgor was decreased a couple of days ago in the office. Due to lethargy and some confusion, she is admitted for further evaluation and treatment, hydration, evaluation for urinary tract infection, and prophylactic antibiotic with Rocephin. PAST MEDICAL HISTORY: Significant for several hospitalizations, hip fracture, COPD, chronic opioid dependence, chronic benzodiazepine dependence, chronic anxiety, and depression. CURRENT MEDICATIONS: 1. Lexapro 20 mg at bedtime. 2. Trazodone 100 mg at bedtime. 3. Albuterol nebulizer with Atrovent q.6 hours. 4. Xanax 1 mg q.i.d. 5. Zyprexa 7.5 mg daily. 6. Oxycodone/APAP 7.5 mg q.6 hours. 7. Requip 2 mg b.i.d. 8. Keflex. ALLERGIES: None known. REVIEW OF SYSTEMS: Significant for blindness, only perceiving a little light in both eyes. She has chronic headache, chronic anxiety, and chronic back pain. She has been on oxygen off and on. She has been to rehab several times and also has been seen on a regular basis by home health. She continues to smoke occasionally despite her COPD and use of occasional oxygen. FAMILY HISTORY: Significant for heart disease. SOCIAL HISTORY: Lives alone in assisted living facility. There is a friend of the family, Mel Patel, who usually accompanies her to the and to the hospital. For the past year, there has been a locked medication dispensing box to control her benzodiazepines and opiates. This has seemed to work fairly well. There is no history of alcohol usage. PHYSICAL EXAMINATION: VITAL SIGNS: Temperature 99 degrees, heart rate 88, respirations 20, and blood pressure 98/60. GENERAL: Patient is a well-developed, fairly well-nourished white female in mild distress with generalized weakness. She is able to answer simple questions, but has mild confusion. She is oriented to person, time and place. Pharynx benign with no erythema or exudate. NECK: Supple with no mass or lymphadenopathy. There is no carotid bruit. HEART: Regular in rate and rhythm with no murmur, rub or gallop. LUNGS: Clear with no rales or rhonchi. ABDOMEN: Soft with no mass, tenderness, or organomegaly. EXTREMITIES: There is 2+ ankle edema bilaterally. Chest x-ray shows no infiltrates or edema. RECTAL AND GENITALIA: Deferred. IMPRESSION: Lethargy, anorexia, dehydration, and possible urinary tract infection. PLAN: Admit for hydration and further evaluation. cc: Mart Pretty MD
[2019-09-01] MEDS: XANAX PO SCH (19:42)
[2019-09-01] MEDS ORDERED: PERCOCET-5 PO PRN (20:00)
[2019-09-01] MEDS ORDERED: DESYREL PO SCH (21:00)
[2019-09-01 21:09] LABS: BASO# 0.04 X1000 (0.0-0.2); BASO% 0.7 % (0.0-0.8); EOS# 0.31 X1000 (0.0-0.7); EOS% 5.4 % (0.0-10.0); HEMATOCRIT 41.2 % (37.0-47.0); HEMOGLOBIN 13.2 g/dL (12.0-16.0); IMM GRAN# 0.02 X1000 (0.0-0.04); IMM GRAN% 0.3 % (0.0-0.5); LYMPH# 2.28 X1000 (1.2-3.4); LYMPH% 39.8 % (20.5-51.1); MCH 31.9 PG (27-31); MCV 99.5 FL (81-99); MONO# 0.74 X1000 (0.11-0.59); MONO% 12.9 % (1.7-9.3); MPV 11.3 FL (7.4-10.4); NEUT# 2.34 X1000 (1.4-6.5); NEUT% 40.9 % (42.2-75.2); PLT 109 X1000 (130-400); RBC 4.14 XMIL (4.2-5.4); RDW 12.1 % (11.5-14.5); WBC 5.73 X1000 (4.8-10.8)
[2019-09-01 21:33] LABS: AGAP 10; ALB/GLOB RATIO 1.4; ALBUMIN 3.2 g/dL (3.5-5.0); ALKALINE PHOSPHATASE 68 U/L (32-104); BUN 10 mg/dL (8-22); CALCIUM 8.4 mg/dL (8.8-10.2); CHLORIDE 99 mmol/L (98-107); COSMO 286; CREATININE 0.9 mg/dL (0.5-0.9); ESTIMATED GFR > 60; GLUCOSE 100 mg/dL (70-104); GOT 17 U/L (10-30); GPT 8 U/L (10-36); POTASSIUM 3.7 mmol/L (3.5-5.1); SODIUM 144 mmol/L (136-145); TCO2 35 mmol/L (25-35); TOTAL BILIRUBIN 0.29 mg/dL (0.20-1.00); TOTAL PROTEIN 5.5 g/dL (6.3-8.3)
[2019-09-01] MEDS: DUONEB (A & A) INH SCH (21:45)
[2019-09-01 21:53] LABS: URINE SOURCE CATH
[2019-09-01 21:59] LABS: BILIRUBIN URINE NEGATIVE (NEGATIVE); BLOOD URINE NEGATIVE (NEGATIVE); COLOR STRAW; GLUCOSE URINE NEGATIVE (NEGATIVE); KETONE URINE NEGATIVE (NEGATIVE); LEUKOCYTES URINE NEGATIVE (NEGATIVE); NITRITE URINE NEGATIVE (NEGATIVE); PROTEIN URINE NEGATIVE (NEGATIVE); TURBIDITY URINE CLEAR (CLEAR); UR EPITHELIAL CELLS <10 /HPF (<10); URINE BACTERIA NEGATIVE /HPF; URINE RBC <10 /HPF (<10); URINE WBC <10 /HPF (<10); UROBILINOGEN URINE NORMAL (NORMAL)
[2019-09-02] MEDS: XANAX PO SCH ×6 (00:30→22:24)
[2019-09-02] MEDS: LEXAPRO PO SCH ×2 (00:30→22:23)
[2019-09-02] MEDS: REQUIP PO SCH ×3 (00:30→22:23)
[2019-09-02] MEDS: DUONEB (A & A) INH SCH ×4 (04:00→21:47)
[2019-09-02] MEDS ORDERED: ALBUMIN 25% IV ONE (07:43)
--- NOTE | 2019-09-02 08:04 | PROGRESS NOTE ---
DATE: 09/02/2019 VITAL SIGNS: Temperature 97.6 degrees, heart rate 51, respirations 12, blood pressure 84/39, O2 saturation on nasal oxygen 96%. LABORATORY: Urinalysis less than 10 WBCs per high-powered field. Hemoglobin 13.2, hematocrit 41.2, white blood count 5700 with normal differential. Chemistry: Sodium 144, potassium 3.7. BUN 10, creatinine 0.9, calcium 8.4, total protein low at 5.5, albumin low at 3.2. OBJECTIVE: Chest: Chest is clear. Abdomen: Soft. PLAN: Increase diet and decrease controlled substances. To assist with raising blood pressure. Physical Therapy is asked to assist. The patient may need rehab at discharge. Social Service consult is obtained. cc: Mart Pretty MD
[2019-09-02] MEDS: ZYPREXA PO SCH (08:28)
[2019-09-02] MEDS: NS 1,000 ML IV SCH ×3 (08:29→16:12)
[2019-09-02] MEDS: LOVENOX SUBQ SCH (08:34)
[2019-09-02] MEDS: ROCEPHIN 1 GM in NS 50 ML IV SCH ×2 (08:40→18:29)
[2019-09-02] MEDS: DESYREL PO SCH (22:24)
[2019-09-03 00:15] LABS: UR AMPHETAMINES QUAL NONE DETECTED (NONE DETECT); UR BARBITUATES QUAL NONE DETECTED (NONE DETECT); UR BENZODIAZEPIN QUAL PRESUMPTIVE POSITIVE (NONE DETECT); UR CANNABINOIDS QUAL NONE DETECTED (NONE DETECT); UR COCAINE QUAL NONE DETECTED (NONE DETECT); UR METHADONE QUAL NONE DETECTED (NONE DETECT); UR OPIATES QUAL NONE DETECTED (NONE DETECT); UR OXYCODONE QUAL PRESUMPTIVE POSITIVE (NONE DETECT); UR PCP QUAL NONE DETECTED (NONE DETECT)
[2019-09-03] MEDS: PERCOCET-5 PO SCH ×3 (01:42→17:08)
[2019-09-03] MEDS: NS 1,000 ML IV SCH ×3 (06:32→14:41)
[2019-09-03] MEDS: ZYPREXA PO SCH (08:40)
[2019-09-03] MEDS: REQUIP PO SCH ×2 (08:40→22:01)
[2019-09-03] MEDS: LOVENOX SUBQ SCH (08:40)
[2019-09-03] MEDS: XANAX PO SCH ×4 (08:40→22:02)
--- NOTE | 2019-09-03 10:57 | PROGRESS NOTE ---
DATE: 09/03/2019 SUBJECTIVE: The patient says she is more awake, feels a little bit better, but she is still hurting from her arthritis. She came in with some hypotension presumably from dehydration, and was positive for oxycodone and benzodiazepine. She takes pain medication for her arthritis. It was supposed that she might have had a urinary tract infection. Urinalysis is clear. She is still on antibiotics. OBJECTIVE: Blood pressure is now 132/59, respirations 17, pulse 61, temperature 98.7 degrees Fahrenheit. HEENT: She is normocephalic. EOMS intact. PERRLA. Throat clear. Lungs: Clear to auscultation and percussion without rhonchi, rales, or wheezes. Heart: Regular rate and rhythm without murmurs, gallops, or friction rubs. Neurological exam: Patient is alert and answers questions appropriately. Says she does not need anything else right at this time. Seems to be getting better with IV fluids. ASSESSMENT: 1. Volume depletion. 2. Arthritis. 3. Hypotension, resolved. PLAN: Continue support. cc: MD Mart Ricci Jr, MD
[2019-09-03] MEDS: DUONEB (A & A) INH SCH ×4 (12:08→23:24)
[2019-09-03] MEDS: ROCEPHIN 1 GM in NS 50 ML IV SCH (17:06)
[2019-09-03] MEDS: DESYREL PO SCH ×2 (22:01→22:05)
[2019-09-03] MEDS: LEXAPRO PO SCH ×2 (22:01→22:06)
[2019-09-04] MEDS: XANAX PO SCH ×4 (01:26→17:42)
[2019-09-04] MEDS: DUONEB (A & A) INH SCH ×5 (03:07→23:18)
[2019-09-04] MEDS: PERCOCET-5 PO SCH ×2 (05:27→17:44)
[2019-09-04] MEDS: NS 1,000 ML IV SCH ×2 (06:41→12:38)
[2019-09-04] MEDS: ZYPREXA PO SCH (09:03)
[2019-09-04] MEDS: REQUIP PO SCH (09:09)
[2019-09-04] MEDS: LOVENOX SUBQ SCH (09:09)
--- NOTE | 2019-09-04 11:41 | PROGRESS NOTE ---
DATE: 09/04/2019 SUBJECTIVE: The patient was eating a peanut butter and jelly sandwich and just fci propped up in her bed when she was doing that. I noticed she had wheezing. I asked her if she had choked and she said yes. She is not very alert at this time. I talked with her nurse and her nurse said that she has been having some wheezing and Dr. Pretty had already ordered some ALLISON treatments and has her on Rocephin. Apparently, she has possibly some COPD problems or bronchitis problems. I do not know whether she really aspirated at this time or not but I will get a chest x-ray. We will continue her breathing treatments. She came in with volume depletion and hypotension. That seems to be doing better. OBJECTIVE: Vital Signs: Blood pressure is 103/43, respirations 16, pulse 68, temperature 99.3 degrees Fahrenheit. HEENT: She is normocephalic. EOMS intact. PERRLA. Throat clear. Lungs: Have scattered wheezes. Heart: Regular rate and rhythm without murmurs, gallops, friction rubs. Abdomen: Soft. Active bowel sounds. No organomegaly or tenderness. Neurological: The patient is alert but is slow in answering her questions. Apparently according to her nurse, her cognition comes and goes a little bit. ASSESSMENT: 1. Bronchospasm and bronchitis. 2. Volume depletion. 3. Hypotension, now improved. 4. Use of OxyContin and benzodiazepines together which may have caused some sedation and some of these other problems if she over does somewhat with this. PLAN: We will continue to support. cc: MD Mart Ricci Jr, MD
--- NOTE | 2019-09-04 13:03 | Diag Imaging Result Doc PS360 ---
EXAM: CHEST-2 VIEWS INDICATION: ?aspiration TECHNIQUE: 2 views COMPARISON: 09/01/2019 FINDINGS: There is focal increased opacity at the posterior lung bases seen on the lateral view. This cannot be clearly identified on the frontal projection but is probably a consolidation in the posterior right lower lobe. No other new consolidation is identified. Cardiac silhouette is stable. IMPRESSION: Posterior basilar focal consolidation that is probably in the right lower lobe Electronically signed by Ronnie Abdul 09/04/2019 1:01 PM
[2019-09-04] MEDS: ROCEPHIN 1 GM in NS 50 ML IV SCH (17:42)
[2019-09-05] MEDS: DESYREL PO SCH ×2 (00:54→23:07)
[2019-09-05] MEDS: LEXAPRO PO SCH ×2 (01:01→23:08)
[2019-09-05] MEDS: REQUIP PO SCH ×3 (01:01→23:08)
[2019-09-05] MEDS: PERCOCET-5 PO SCH ×4 (01:02→23:13)
[2019-09-05] MEDS: NS 1,000 ML IV SCH (01:02)
[2019-09-05] MEDS: XANAX PO SCH ×5 (01:07→23:07)
[2019-09-05] MEDS: DUONEB (A & A) INH SCH ×4 (03:58→22:40)
[2019-09-05] MEDS ORDERED: SALINE LOCK IV FLUID XX ONE (07:36)
[2019-09-05 07:50] LABS: AGAP 12; BUN 8 mg/dL (8-22); CALCIUM 8.7 mg/dL (8.8-10.2); CHLORIDE 104 mmol/L (98-107); COSMO 287; CREATININE 0.5 mg/dL (0.5-0.9); ESTIMATED GFR > 60; GLUCOSE 97 mg/dL (70-104); POTASSIUM 3.4 mmol/L (3.5-5.1); SODIUM 145 mmol/L (136-145); TCO2 29 mmol/L (25-35)
--- NOTE | 2019-09-05 08:01 | PROGRESS NOTE ---
DATE: 09/05/2019 Vital signs stable with temperature 98.8 degrees, heart rate 91, respirations 16, blood pressure 129/82, O2 saturation on 3 L of nasal oxygen 90%. Chest x-ray yesterday revealed mild right basilar infiltrate. She has been afebrile. She states that she has not been out of bed despite physical therapy. PLAN: Increase activity, change to p.o. antibiotics with Omnicef, and plan for rehab at discharge when a bed is available. cc: Mart Pretty MD
[2019-09-05 08:03] LABS: BASO# 0.01 X1000 (0.0-0.2); BASO% 0.1 % (0.0-0.8); EOS# 0.17 X1000 (0.0-0.7); EOS% 2.1 % (0.0-10.0); HEMATOCRIT 41.1 % (37.0-47.0); HEMOGLOBIN 12.8 g/dL (12.0-16.0); IMM GRAN# 0.03 X1000 (0.0-0.04); IMM GRAN% 0.4 % (0.0-0.5); LYMPH# 1.21 X1000 (1.2-3.4); MCH 31.1 PG (27-31); MCHC 31.1 g/dL (33-37); MONO# 0.99 X1000 (0.11-0.59); MONO% 12.3 % (1.7-9.3); NEUT# 5.66 X1000 (1.4-6.5); NEUT% 70.1 % (42.2-75.2); PLT 95 X1000 (130-400); RBC 4.11 XMIL (4.2-5.4); RDW 12.1 % (11.5-14.5); WBC 8.07 X1000 (4.8-10.8)
[2019-09-05] MEDS: ZYPREXA PO SCH (08:46)
[2019-09-05] MEDS: LOVENOX SUBQ SCH (10:00)
[2019-09-05] MEDS: OMNICEF PO SCH ×2 (10:22→23:07)
[2019-09-05] MEDS: KLOR-CON PO SCH (23:12)
[2019-09-06] MEDS: DUONEB (A & A) INH SCH ×4 (03:29→22:51)
[2019-09-06 07:04] LABS: BASO# 0.01 X1000 (0.0-0.2); BASO% 0.2 % (0.0-0.8); EOS# 0.19 X1000 (0.0-0.7); EOS% 3.7 % (0.0-10.0); HEMOGLOBIN 11.1 g/dL (12.0-16.0); LYMPH# 1.43 X1000 (1.2-3.4); LYMPH% 27.8 % (20.5-51.1); MCH 30.7 PG (27-31); MCHC 30.8 g/dL (33-37); MCV 99.7 FL (81-99); MONO# 0.66 X1000 (0.11-0.59); MONO% 12.8 % (1.7-9.3); MPV 12.5 FL (7.4-10.4); NEUT# 2.85 X1000 (1.4-6.5); NEUT% 55.5 % (42.2-75.2); PLT 81 X1000 (130-400); RBC 3.61 XMIL (4.2-5.4); WBC 5.14 X1000 (4.8-10.8)
[2019-09-06 07:11] LABS: AGAP 9; BUN 8 mg/dL (8-22); CALCIUM 8.4 mg/dL (8.8-10.2); CHLORIDE 102 mmol/L (98-107); COSMO 285; CREATININE 0.6 mg/dL (0.5-0.9); ESTIMATED GFR > 60; GLUCOSE 104 mg/dL (70-104); POTASSIUM 2.9 mmol/L (3.5-5.1); SODIUM 144 mmol/L (136-145); TCO2 33 mmol/L (25-35)
--- NOTE | 2019-09-06 08:19 | PROGRESS NOTE ---
DATE: 09/06/2019 Vital signs: Temperature 98.1 degrees, heart rate 57, respiration 18, blood pressure 102/42, O2 saturation 96% on 5 L nasal oxygen. Lungs remain fairly clear. She denies shortness of breath, cough or chest tightness. I and O reveals her taking about 25% of meals the last 24 hours. She had a bowel movement yesterday. I and O was negative yesterday, 1100 mL. Last chest x-ray on 09/04 revealed posterior basilar focal consolidations. There was a possibility of aspiration. Repeat chest x-ray will be done tomorrow if her O2 saturation continues to be low and her requirement for nasal oxygen continues to be as is. PLAN: Physical therapy, and placement in a rehab bed when 1 is available. cc: Mart Pretty MD
[2019-09-06] MEDS: KLOR-CON PO SCH ×2 (08:35→22:15)
[2019-09-06] MEDS: REQUIP PO SCH ×2 (08:35→22:15)
[2019-09-06] MEDS: ZYPREXA PO SCH (08:35)
[2019-09-06] MEDS: OMNICEF PO SCH ×2 (08:35→22:15)
[2019-09-06] MEDS: XANAX PO SCH ×5 (08:44→22:15)
[2019-09-06] MEDS: PERCOCET-5 PO SCH ×3 (09:04→23:33)
[2019-09-06] MEDS: POTASSIUM CHLORIDE 20 MEQ/SWI 20 MEQ/100 ML IVPB IV SCH ×2 (09:04→12:15)
[2019-09-06] MEDS: LOVENOX SUBQ SCH (09:07)
[2019-09-06] MEDS ORDERED: NS 500 ML ONE (16:10)
[2019-09-06] MEDS: LEXAPRO PO SCH (22:15)
[2019-09-06] MEDS: DESYREL PO SCH (22:16)
[2019-09-07] MEDS: DUONEB (A & A) INH SCH ×4 (03:35→21:52)
[2019-09-07] MEDS: PERCOCET-5 PO SCH ×3 (05:40→20:00)
--- NOTE | 2019-09-07 07:32 | Diag Imaging Result Doc PS360 ---
EXAM: CHEST-PORTABLE HISTORY: pneumonia TECHNIQUE: Single view COMPARISON: 09/04/2019 FINDINGS: The lungs are well expanded. No cardiomegaly. There is pulmonary edema on the current exam. There are basilar infiltrates. No pleural effusions identified. IMPRESSION: Mild interval worsening. Electronically signed by Tapan Prakash 09/07/2019 7:30 AM
--- NOTE | 2019-09-07 08:01 | PROGRESS NOTE ---
DATE: 09/07/2019 Vital signs: Stable with temperature 98.7 degrees, heart rate 63, respirations 14, blood pressure 115/51, O2 saturation on nasal oxygen 97%. Laboratory is pending. Chest x-ray was fairly clear with no significant infiltrate. General: She rested fairly well last night. Lungs: Are clear to auscultation. Abdomen: Is soft. PLAN: Continue physical therapy and await rehab bed. cc: Mart Pretty MD
[2019-09-07 08:34] LABS: AGAP 9; BUN 11 mg/dL (8-22); CALCIUM 8.5 mg/dL (8.8-10.2); CHLORIDE 103 mmol/L (98-107); COSMO 285; CREATININE 0.6 mg/dL (0.5-0.9); ESTIMATED GFR > 60; GLUCOSE 110 mg/dL (70-104); POTASSIUM 3.4 mmol/L (3.5-5.1); SODIUM 143 mmol/L (136-145); TCO2 31 mmol/L (25-35)
[2019-09-07 08:51] LABS: BASO# 0.01 X1000 (0.0-0.2); BASO% 0.2 % (0.0-0.8); EOS# 0.28 X1000 (0.0-0.7); EOS% 6.2 % (0.0-10.0); HEMATOCRIT 35.5 % (37.0-47.0); HEMOGLOBIN 10.9 g/dL (12.0-16.0); LYMPH# 1.21 X1000 (1.2-3.4); LYMPH% 26.6 % (20.5-51.1); MCH 30.5 PG (27-31); MCHC 30.7 g/dL (33-37); MCV 99.4 FL (81-99); MONO% 13.2 % (1.7-9.3); MPV 12.5 FL (7.4-10.4); NEUT# 2.45 X1000 (1.4-6.5); NEUT% 53.8 % (42.2-75.2); PLT 93 X1000 (130-400); RBC 3.57 XMIL (4.2-5.4); WBC 4.55 X1000 (4.8-10.8)
[2019-09-07] MEDS: ZYPREXA PO SCH (08:55)
[2019-09-07] MEDS: KLOR-CON PO SCH ×2 (08:56→20:01)
[2019-09-07] MEDS: OMNICEF PO SCH (08:56)
[2019-09-07] MEDS: REQUIP PO SCH ×2 (08:56→20:00)
[2019-09-07] MEDS: LOVENOX SUBQ SCH (08:57)
[2019-09-07] MEDS: XANAX PO SCH ×3 (08:59→21:12)
[2019-09-07] MEDS: POTASSIUM CHLORIDE 20 MEQ/SWI 20 MEQ/100 ML IVPB IV SCH (18:14)
[2019-09-07] MEDS ORDERED: LASIX IV ONE (18:17)
[2019-09-07] MEDS: LEXAPRO PO SCH (20:00)
[2019-09-07] MEDS: DESYREL PO SCH (20:00)
[2019-09-08] MEDS: POTASSIUM CHLORIDE 20 MEQ/SWI 20 MEQ/100 ML IVPB IV SCH (02:32)
[2019-09-08] MEDS: PERCOCET-5 PO SCH ×2 (02:37→09:38)
[2019-09-08] MEDS: XANAX PO SCH ×2 (03:22→08:57)
[2019-09-08] MEDS: DUONEB (A & A) INH SCH (04:19)
[2019-09-08 08:19] VITALS: BP 105/43
--- NOTE | 2019-09-08 08:53 | DISCHARGE SUMMARY ---
ADMISSION DATE: 09/01/2019 DISCHARGE DATE: 09/08/2019 FINAL DIAGNOSES: 1. Dehydration. 2. Lethargy related to medication. 3. Right upper lobe pneumonia. 4. Pulmonary edema. 5. Chronic obstructive pulmonary disease. DISPOSITION: [facility]. HISTORY: This is the first fairly recent admission for this 74-year-old white female with COPD requiring oxygen at home who became weaker, and was unable to walk. She presented to the emergency room where she was evaluated and admitted for hydration, and further evaluation. There was initial impression of urinary tract infection and sepsis, but urine revealed no significant pyuria. Chest x-ray on 09/04 showed some posterior basilar consolidation in the right lower lung. INITIAL LABORATORY: Hemoglobin 13.2, hematocrit 41.2, white blood count 5700, sodium 144, potassium 3.7, BUN 10, creatinine 0.9, glucose 94, total protein 5.5, and albumin 3.2. HOSPITAL COURSE: She was treated with intravenous Rocephin and changed to Omnicef p.o. after a few days. Her oxycodone was decreased to 5 mg q.i.d. and trazodone decreased to 50 mg at bedtime. Initially, she had hypotension with systolic blood pressure less than 100. She has required nasal oxygen throughout the hospitalization. Last chest x-ray showed some pulmonary vascular congestion, and pulmonary edema. She was given Lasix 40 mg IV last evening, and is placed on p.o. Lasix this morning. Physical Therapy has assisted ambulation. The patient continues to be very weak. She needs rehab for additional strengthening and physical therapy. She is discharged by ambulance to physical to [facility] before returning to assisted living. cc: Mart Pretty MD
[2019-09-08] MEDS: ZYPREXA PO SCH (08:58)
[2019-09-08] MEDS: LOVENOX SUBQ SCH (08:58)
[2019-09-08] MEDS: KLOR-CON PO SCH (08:58)
[2019-09-08] MEDS: REQUIP PO SCH (08:58)
[2019-09-08] MEDS ORDERED: LASIX PO SCH (09:00)
== END 2019-09-08 10:32 | DRG 640 ==
LOC: DIRADM 16:02 → EDIPHOLD 16:30 → 4N 21:16
PROVIDERS: ADMIT Family Medicine; ATTEND Family Medicine